=== PATIENT | female | born 1970 | race Caucasian/White ===

== ENCOUNTER 2020-01-23 16:50 | Emergency (ER) | payer OTHER, SELFPAY ==
--- NOTE | ~2020-01-23 | XR_ITS ---
EXAMINATION: XR knee RT 3V DATE: 01/23/2020 17:22 INDICATION: Right knee pain. TECHNIQUE: 3 views of right knee were obtained. COMPARISON: Right knee radiographs 10/06/2016 FINDINGS: Bone alignment is normal. No fracture. There is mild tricompartmental osteoarthritis charac terized by tiny marginal osteophytes. No knee joint effusion. IMPRESSION: 1. Mild right knee osteoarthritis. Reviewed, dictated and finalized at location A.
[2020-01-23 17:03] VITALS: BP 135/77; PULSE 88; RESP 18; TEMP 36.6; O2SAT 99
--- NOTE | 2020-01-23 17:04 | ED.LOWEXIN ---
HPI - Extremity Injury (Lower) General Chief Complaint: Extremity Injury, Lower Stated Complaint: right knee injury Time Seen by Provider: 01/23/20 17:09 Source: patient Mode of arrival: ambulatory Limitations: no limitations History of Present Illness HPI Narrative: Juana Kauffman is a 49 yo female with no PMH comes to express care with injury to right leg that occurred POA. She was caring a bit up the stairs and her right knee popped, pain in the posterior medial side of right knee, difficulty extending or flexing the knee without pain. Only treatment is ice Related Data Allergies Allergy/AdvReac Type Severity Reaction Status Date / Time latex Allergy Severe Nausea Verified 01/23/20 16:54 piroxicam Allergy Severe Swelling Verified 01/23/20 17:34 codeine AdvReac Mild NAUSEA/VOMI Verified 01/23/20 16:54 TING Review of Systems Review of Systems: Narrative: CONSTITUTIONAL: Denies fever, chills, sweats. EYES: Denies visual changes, redness, discharge. ENT: Denies rhinorrhea, congestion, sore throat, otalgia. CARDIOVASCULAR: Denies chest pain, palpitations, edema. RESPIRATORY: Denies dyspnea, wheezing, cough GASTROINTESTINAL: Denies abdominal pain, nausea, vomiting, diarrhea. GENITOURINARY: Denies dysuria, hematuria, abnormal discharge SKIN: Denies rash or itching. NEUROLOGIC: Denies numbness, or focal weakness. PSYCHIATRIC: Denies anxiety or depression. Right knee pain PMFSH Family History Family History Father Family history of primary malignant neoplasm of liver Other Diabetes mellitus Hypertension Social History Social History Smoking status: Never smoker Alcohol intake: never Gender identity (if verbalized by the patient): Female Comments At time of signature, I agree with nursing past medical, surgical, social and family history. There is no relevant family history pertinent to the presenting complaint. Exam Narrative: Exam Narrative: GENERAL: This is a well-nourished, well-developed patient, in moderate distress. HEAD: normocephalic, atraumatic. EYES: Sclera clear/white. Vision is grossly intact. EARS: External ears normal, . Hearing grossly intact. NOSE: External nose normal without nasal discharge, nares without redness, no rhinorrhea. THROAT: Mucous membranes moist, NECK: Neck supple, CARDIOVASCULAR: Regular rate and rhythm without murmurs, gallops, or rubs. RESPIRATORY: Clear to auscultation. Breath sounds equal bilaterally. No wheezes, rales, or rhonchi. GASTROINTESTINAL: Abdomen soft, SKIN: warm, intact with no suspicious lesions or rash, good texture and turgor. NEURO: awake, alert, and oriented to person, place and time. There were no obvious focal neurologic abnormalities. Steady gait EXTREMITIES: Normal range of motion on left; right knee pain medial posterior side unable to extend fully and flexion stops at 90 degrees due to pain; point tenderness at medial clear collateral ligament attachment BACK: Nontender without deformity Course Course Emergency Course: X-ray right knee- mild R knee osteoarthritis, no fracture or dislocation Toradol 60 mg IM- canceled due to angioedema reported by pt when questioned about rx; discharged on norco Knee immobilizer placed on R knee Referral to orthopedist-treat with RICE over the weekend Vital Signs Vital signs: Vital Signs Temperature 97.9 F 01/23/20 17:03 Pulse Rate 88 01/23/20 17:03 Respiratory Rate 18 01/23/20 17:03 Blood Pressure 135/77 01/23/20 17:03 Pulse Oximetry 99 01/23/20 17:03 Temperature 97.9 F 01/23/20 17:03 Pulse Rate 88 01/23/20 17:03 Respiratory Rate 18 01/23/20 17:03 Blood Pressure 135/77 01/23/20 17:03 Pulse Oximetry 99 01/23/20 17:03 MDM - Extremity Injury (Lower) Differential Diagnosis Differential diagnosis: Likely acute internal derangement of knee, ankle fracture an
== END 2020-01-23 17:39 | disposition home or self-care (01) ==
PROVIDERS: Emergency Provider Nurse Practitioner; PCP Registered Nurse
DX: M25.561 Pain in right knee (principal)
CPT/HCPCS: 73562; 99213; G0463; L1830

== ENCOUNTER 2020-10-25 13:53 | Outpatient (CLI) | payer OTHER, SELFPAY ==
--- NOTE | ~2020-10-25 | MM_ITS ---
EXAMINATION: MM screening mejia BI w ajit HISTORY: Screening TECHNIQUE: Craniocaudal and mediolateral oblique 3-D tomosynthesis images were obtained and synthetic 2-D images were generated. CAD analysis was submitted and interpreted. COMPARISON: No prior mammogram is available for comparison at this institution. BREAST PARENCHYMAL COMPOSITION: Breast composed of scattered areas of fibroglandular density FINDINGS: There are clustered calcifications in the lower central aspect of the right breast. There i s focal asymmetry laterally in the left breast on CC view. IMPRESSION: 1. Clustered indeterminate right breast calcifications. Focal left breast asymmetry laterally on CC v iew with possible architectural distortion. 2. Additional mammographic views and possible breast ultrasound are recommended. BI-RADS Category 0: Incomplete: Needs additional imaging evaluation. Reviewed, dictated and finalized at location A. IMPRESSION: 1. Clustered indeterminate right breast calcifications. Focal left breast asymm etry laterally on CC view with possible architectural distortion. 2. Additional mammographic views and possible breast ultrasound are recommended . BI-RADS Category 0: Incomplete: Needs additional imaging evaluation.
== END 2020-10-25 13:54 | disposition home or self-care (01) ==
PROVIDERS: PCP Registered Nurse; Visit Provider Obstetrics & Gynecology
DX: Z12.31 Encounter for screening mammogram for malignant neoplasm of breast (principal); R92.8 Other abnormal and inconclusive findings on diagnostic imaging of breast
CPT/HCPCS: 77063; 77067

== ENCOUNTER 2020-12-17 11:55 | Outpatient (CLI) | payer OTHER, SELFPAY ==
--- NOTE | ~2020-12-17 | MMUS_ITS ---
EXAMINATION: MM diagnostic mammo BI, US breast LT complete HISTORY: Follow-up breast calcifications and left breast asymmetry. TECHNIQUE: Additional 3-D tomosynthesis images of the breasts were performed and synthetic 2-D images were generated. CAD analysis was submitted and interpreted. High resolution complete left breast ult rasound was performed. COMPARISON: Comparison to multiple prior studies sequentially, with oldest reviewed study dated 12/31. BREAST PARENCHYMAL COMPOSITION: Breast composed of scattered areas of fibroglandular density FINDINGS: MAMMOGRAPHIC FINDINGS: There are scattered bilateral breast calcifications many of which layer on the medial lateral view, c onsistent with benign milk of calcium. There is persistent asymmetry lateral aspect of the left breas t on CC view without discrete mass. ULTRASOUND: Left breast ultrasound: There are multiple cysts of the left breast as well as mildly prominent peria reolar ducts. Largest cyst measures approximately 5 mm. No suspicious solid or vascular masses to sug gest malignancy. IMPRESSION: 1. No evidence for malignancy in either breast. Benign findings. 2. Routine yearly screening mammogram and regular clinical breast examination are recommended. BI-RADS Category 2: Benign finding(s). Reviewed, dictated and finalized at location A. IMPRESSION: 1. No evidence for malignancy in either breast. Benign findings. 2. Routine yearly screening mammogram and regular clinical breast examination a re recommended. BI-RADS Category 2: Benign finding(s).
== END 2020-12-17 11:56 | disposition home or self-care (01) ==
LOC: ANHIMG 11:57
PROVIDERS: PCP Registered Nurse; Visit Provider Obstetrics & Gynecology
DX: R92.8 Other abnormal and inconclusive findings on diagnostic imaging of breast (principal)
CPT/HCPCS: 76641; 77066

== ENCOUNTER 2022-08-11 08:54 | Outpatient (CLI) | payer OTHER, SELFPAY ==
--- NOTE | ~2022-08-11 | MM_ITS ---
EXAMINATION: MM screening mejia BI w ajit HISTORY: Screening TECHNIQUE: Craniocaudal and mediolateral oblique 3-D tomosynthesis images were obtained and synthetic 2-D images were generated. CAD analysis was submitted and interpreted. COMPARISON: Comparison to multiple prior studies sequentially, with oldest reviewed study dated 10/25. BREAST PARENCHYMAL COMPOSITION: There are scattered areas of fibroglandular density. FINDINGS: Stable bilateral breast asymmetries and calcifications. There is no evidence of suspicious mass, calcification, or architectural distortion to suggest malignancy in either breast. There has be en no suspicious interval change. IMPRESSION: 1. No mammographic evidence of malignancy. 2. Recommend routine screening mammography in one year. BI-RADS Category 2: Benign finding(s). Reviewed, dictated and finalized at location A. L [employer]
== END 2022-08-11 08:55 | disposition home or self-care (01) ==
LOC: ANHIMG 08:57
PROVIDERS: PCP Registered Nurse; Visit Provider Registered Nurse
DX: Z12.31 Encounter for screening mammogram for malignant neoplasm of breast (principal)
CPT/HCPCS: 77063; 77067

== ENCOUNTER 2022-11-28 11:31 | Outpatient (CLI) | payer OTHER, SELFPAY ==
--- NOTE | ~2022-11-28 | XR_ITS ---
Left wrist Technique: PA, oblique, lateral, and ulnar deviation views were obtained. Clinical History: Pain Findings: No acute fracture or dislocation is seen. Osseous alignment is anatomic. Joint spaces are p reserved. Soft tissues are unremarkable. Impression: Unremarkable left wrist radiographs. Reviewed, dictated and finalized at location . Impression: Unremarkable left wrist radiographs.
--- NOTE | ~2022-11-28 | XR_ITS ---
Left Hand Technique: PA, oblique, and lateral views were obtained. Clinical History: Pain Findings: No acute fracture or dislocation is seen. Osseous alignment is anatomic. Joint spaces are p reserved. Soft tissues are unremarkable. Impression: Unremarkable left hand. Reviewed, dictated and finalized at location M. Impression: Unremarkable left hand.
== END 2022-11-28 11:32 | disposition home or self-care (01) ==
PROVIDERS: PCP Registered Nurse; Visit Provider Registered Nurse
DX: M79.642 Pain in left hand (principal); M25.532 Pain in left wrist
CPT/HCPCS: 73110; 73130

== ENCOUNTER 2024-11-08 11:54 | Emergency (ER) | payer OTHER, SELFPAY ==
--- NOTE | ~2024-11-08 | XR_ITS ---
EXAMINATION: XR hand LT min 3V DATE: 11/08/2024 12:12 INDICATION: Left hand injury with bruising TECHNIQUE: Posteroanterior, oblique and lateral views of the left hand were obtained. COMPARISON: 11/28/2022 FINDINGS: Unchanged 3 mm ulnar minus variance. Bone alignment is otherwise normal. No acute fracture. Unchanged corticated ossicle near the ulnar styloid process is likely sequela of old trauma. Polyarticular ost eoarthritis, moderate severity at the triscaphe joint and mild at the distal radioulnar, first carpom etacarpal and multiple interphalangeal joints. IMPRESSION: 1. No acute osseous abnormality. Reviewed, dictated and finalized at location A.
--- NOTE | 2024-11-08 11:55 | ED_ITS ---
HPI - Extremity Injury (Upper) General Chief Complaint: Extremity Injury, Upper Stated Complaint: hand injury Time Seen by Provider: 11/08/24 11:54 Source: patient Mode of arrival: ambulatory Limitations: no limitations History of Present Illness HPI narrative: Juana is a 54-year-old female patient presenting to the clinic today with complaints of left hand pain/injury. She reports she has her dog on a leash and was trying to get outside the door when the dog seen something and took off. Her hand was smashed by the screen dog and pulled by the leash. Has bruising and swelling over the 2nd and 3rd knuckles with bruising over the 5th metacarpal. Abrasion to the winter aspect of the left third proximal finger. Bleeding controlled. Last tetanus is unknown. Related Data Home Medications ?Medication ?Instructions ?Recorded ?Confirmed ?Last Taken ?Type No Home Medications 11/08/24 11/08/24 Unknown History Allergies Allergy/AdvReac Type Severity Reaction Status Date / Time latex Allergy Severe Nausea Verified 11/08/24 12:04 piroxicam Allergy Severe Swelling Verified 11/08/24 12:04 codeine AdvReac Mild NAUSEA/VOMI Verified 11/08/24 12:04 TING Review of Systems Review of Systems: Pertinent positives per HPI. Patient denies any fever, chills, rash, headache, visual changes, dizziness, cough, shortness of breath, chest pain, palpitations, nausea, vomiting, diarrhea, constipation, abdominal pain, or any urinary issues. PMFSH Past Medical History Medical History High blood pressure never on medications Menopausal state Surgical History Surgical History History of cholecystectomy History of hysterectomy with oophorectomy still has one ovary Family History Family History Father Family history of primary malignant neoplasm of liver Other Diabetes mellitus Hypertension Social History Social History Smoking status: Never smoker Alcohol intake: never Substance use: never Do You Feel Safe in your Home?: Yes Lack of Transportation: No Lack of Food: Never True Current Housing: I Have Housing Concerned About Future Housing: No Difficulty Paying Gas/Electric Bills: No Difficulty Paying for Meds: No Currently Unemployed: YES Education: High School Diploma/GED Difficulty w/ Childcare or Family Care: No Living arrangements: with family Occupation/Education: occupation Gender identity (if verbalized by the patient): Female Sexual Orientation (if Verbalized by the Patient): Straight or Heterosexual Spiritual care concerns: No Agree to blood products: Yes Comments At the time of my signature, I reviewed and agree with the nursing past medical, surgical, social, and family history. There is no relevant family history pertinent to the patient complaint. Exam Narrative: General: Well-developed, well nourished, in no apparent distress Head: Normocephalic, atraumatic. Cardio: Regular rate and rhythm, s1 and s2 normal, no murmur appreciated. Resp: Clear to auscultation bilaterally, no rhonchi, rales, wheezing or rubs. Musculoskeletal: No deformity, as bruising and swelling over the 2nd and 3rd knu ckles with bruising over the 5th metacarpal. Abrasion to the winter aspect of the left third proximal finger and over the 2nd knuckle. Bleeding controlled, tender to palpation over these areas, limited rom of finger due to pain and swelling, peripheral pulse strong, no edema, no cyanosis, normal gait and station Course Course Emergency Course: Portions of this record may have been created with voice recognition software. Level of Care: Express Care Visit Vital Signs Vital signs: Vital Signs Temperature 36.1 C L 11/08/24 12:03 Pulse Rate 66 11/08/24 12:03 Respiratory Rate 18 11/08/24 12:03 Blood Pressure 139/71 11/08/24 12:03 Pulse Oximetry 100 11/08/24 12:03 Oxygen Delivery Room Air 11/08/24 12:03 Temperature 36.1 C L 11/08/24 12:03 Pulse Rate 66 11/08/24 12:03 Respiratory Rate 18 11/08/24 12:03 Blood Pressure 139/71 11/08/24 12:03 Pulse Oximetry 100 11/08/24 12:03 Oxygen Delivery Room Air 11/08/24 12:03 Vital signs reviewed MDM - Extremity Injury (Upper) MDM Narrative Medical decision making narrative: At the time of visit patient is resting comfortably on the exam table. Patient appears to be nontoxic. Diagnostics: X-ray of the left hand was performed and was negative for any sign of fracture or malalignment. Medications: Tdap 0.5 mL IM Plan: I suspect patient has skin abrasion, hand contusion, and hematoma to the top of the dorsal hand. Supportive measures were discussed with the patient and they voiced understanding discharge instructions and agrees to treatment plan. Return precautions reviewed Differential Diagnosis Differential diagnosis: Likely finger sprain, dislocation of finger, fracture of hand and other (Hematoma, abrasion, contusion, hand sprain) Imaging Data Radiologist's impression: ITS Impressions Hand X-Ray 11/08/24 12:20 IMPRESSION: 1. No acute osseous abnormality. Discharge Plan Discharge Clinical Impression: Hematoma of left hand Contusion of hand Qualifiers: Encounter type: initial encounter Laterality: left Qualified Code(s): S60.222A - Contusion of left hand, initial encounter Abrasion hand Qualifiers: Encounter type: initial encounter Laterality: left Qualified Code(s): S60.512A - Abrasion of left hand, initial encounter Abrasion of finger of left hand Qualifiers: Encounter type: initial encounter Qualified Code(s): S60.419A - Abrasion of unspecified finger, initial encounter Patient Disposition: Home Condition: Stable Instructions: Antibiotic Form, Contusion in Adults (ED), Abrasion (ED), Hematoma (ED) Additional Instructions: X-rays negative for any signs of fracture or malalignment the left hand Tdap given in the clinic today Leave bandage on for 24 hours then may remove and apply band aide covering as needed. Keep wound clean and dry Watch for signs and symptoms of infection- redness, streaking, swelling, p urulent discharge, or increase in pain. Rest, ice, elevate, and wear deshawn wrap as directed Tylenol/motrin for pain as discussed. Follow up with your PCP if symptoms persist more than 1 week. Patient Language: Belarusian Prescriptions: No Action No Home Medications Follow-up/Referrals: Ritu Dickerson APRN [Primary Care Provider] - Time of Disposition: 12:24 Quality NIHSS Nursing Documentation ED NIHSS nursing documentation: reviewed/agree
--- OUTSIDE RECORDS SUMMARY | 2024-11-08 11:56 | XMS_ITS | Continuity of Care Document ---
Author Organization [facility] Address [address] [place] [address] [place] [address] Phone Care Team Providers Care Consulting Networking Engineer Name Role Phone Pete Gamboa MD Unavailable Unavailable Allergies, Adverse Reactions, Alerts Substance Reaction Status Criticality piroxicam Active No Information codeine Active No Information Medications Medication Instructions Dosage Effective Dates (start - stop) Status Comments No Drug Therapy Prescribed Procedures Procedure Date PREV VISIT, NEW, AGE 40-64 OFFICE/OUTPATIENT VISIT, [facility] Advance Directives Directive Yes / No Effective Date File Name No Information Encounters Encounter Description Practice Location Reason(s) For Visit Diagnoses Date Provider Providers Copied on Encounter PREV VISIT, NEW, AGE 40-64 [facility], [address] [place], [place], [id number], tel:[phone] [facility] PHysical (chief complaint) Encounter for general adult medical exam w abnormal findingsGERD w/o esophagitisFamily history of other diseases of the digestive system [address] [facility] [place], [id number] , [place]. tel:[phone] Referring Provider: Pete Gamboa [address] [facility] [place], [id number]. tel:[phone] Family History Family Member Type Diagnosis Age At Onset Sister Problem (finding) Alive and well Mother Problem (finding) Alive and well Father Problem (finding) liver CA (Cause Of Deat h) 64 Payers Payer name Insurance type Covered libertarian ID Authoriza tion(s) No Information Social History [...] Mental Status Date Cognitive Assessment Orientation - [place] ed to time, place, person, situation.
--- OUTSIDE RECORDS SUMMARY | 2024-11-08 11:56 | XMS_ITS | Clinical Summary ---
Author Organization [facility] Address Formerly [place] [address] Care Team Providers Care Cigarette Machine Filler Name Role Phone Natalya Huynh Primary Care Provider Allergies Active Allergy Reactions Criticality Noted Date Comments Codeine Nausea Only,Unknown 08/25/2014 Latex Anaphylaxis High 11/29/2022 Meloxicam Angioedema 10/31/2017 Piroxicam Unknown 10/30/2016 Medications omeprazole 20 MG capsule Take 1 capsule (20 mg total) by mouth daily. Active multi vitamin/mineral s tablet Take 1 tablet by mouth daily. Active Cholecalciferol (VITAMIN D) 50 MCG (2000 UT) Cap Take by mouth daily. Active albuterol sulfate HFA (PROAIR HFA) 108 (90 Base) MCG/ACT inhalerIndicati ons:Cough Inhale 2 puffs into the lungs every 6 (six) hours as needed for Wheezing. 18 g 2 Active estradiol (ESTRACE) 2 MG tablet Take 1 tablet (2 mg total) by mouth daily. 2 Active EPINEPHrine (EPIPEN 2-LUIZ) 0.3 MG/0.3ML injectionIndica tions:Latex allergy Inject 0.3 mLs (0.3 mg total) into the muscle as needed for Anaphylaxis. 1 each 1 3 Active fluticasone propionate (FLONASE) 50 MCG/ACT nasal sprayIndication s:Seasonal allergies Use 1 spray twice daily 16 mL 5 4 Active predniSONE (DELTASONE) 20 MG tabletIndicatio ns:Dysfunction of left eustachian tube Take one tablet once daily for 5 days 5 tablet 4 Active Additional Information Patient not taking.Reported on 12/25/2023 atorvastatin (LIPITOR) 10 MG tabletIndicatio ns:Hyperlipidem ia Take 1 tablet (10 mg total) by mouth nightly at bedtime. 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/19/2017 Fatigue 08/08/2017 Osteoarthritis of right knee 03/12/2017 Patella-femoral syndrome 03/12/2017 Low back pain 01/28/2016 Anxiety 08/06/2015 Right knee pain 08/06/2015 Chronic gastroesophageal reflux disease 01/15/20 15 Thoracic back pain 01/14/2015 Neck pain 01/14/2015 Rhinitis, allergic 10/22/2014 Paresthesia of right arm 08/25/2014 Resolved Problems Problem Noted Date Diagnosed Date Resolved Date Dysuria 04/17/2018 05/02/2022 Sinus infection 11/21/2017 05/02/2022 Pharyngitis, acute 11/20/2017 2 Family History Medical History Relation Comments Cancer Father liver cancer Diabetes Father Hypertension Father Relation Status Comments Father (Age 63) Social History Tobacco Use Types Packs/Day Years Used Date Smoking Tobacco: Never Smokeless Tobacco: Never Tobacco Cessation:Counseling Given: Not Answered Alcohol Use Standard Drinks/Week Comments No 0 (1 standard drink = 0.6 oz pur e alcohol) social AUDIT-C Answer Date Recorded Q1: How often do you have a drink containing alc ohol? Never 04/20/2020 Average Number of Drinks Not on file 020 Frequency of Binge Drinking Not on file 12/2019 PHQ-2 Answer Date Recorded Patient Health Questionnaire-2 Score 4 12/25/2023 Comments No Sex and Gender Information Value Date Recorded Sex Assigned at Female 07/13/2021 9:32 AM MANAGER KNOWLEDGE Legal Sex Female 4:04 PM CDT Gender Identity Female 07/13/2021 9:32 AM MANAGER KNOWLEDGE Sexual Orientation Straight 07/13/2021 9: 32 AM MANAGER KNOWLEDGE Last Filed Vital Signs Vital Sign Reading Time Taken Comments Blood Pressure 122/78 12/25/2023 11:00 AM CDT Pulse 81 12/25/2023 11:00 AM CDT Temperature 36.7 C (98 F) 12/25/2023 11:00 AM CDT Respiratory Rate 16 12/25/2023 11:0 0 AM CDT Oxygen Saturation 98% 12/25/2023 11: 00 AM CDT Inhaled Oxygen Concentration - - Weight 78.4 kg (172 lb 12.8 oz) 024 11:00 AM CDT Height 162.6 cm (5' 4 ) 12/25/2023 11:0 0 AM CDT Body Mass Index 29.66 12/25/2023 11:00 AM CDT Plan of Treatment Health Maintenance Due Date Last Done Comments Hepatitis C 1989 DTaP, Tdap and Td Vaccines (1 - Tdap) 1990 Hepatitis B Vaccines (1 of 3 - 19+ 3-dose series) 1990 Pneumococcal Vaccine: 50+ Years (1 of 1 - PCV) 2021 Zoster Vaccines (1 of 2) 2021 Annual Physical 05/02/2023 05/02/2022 COVID-19 Vaccine (1 - season) 2024 PHQ-2 (Physician [place]) 07/16/2024 12/25/2023 Mammogram Screening 08/11/2024 08/11/2022, 12/17/2020, 10/29/2020, Additional history exists Colorectal Cancer Screening Colonoscopy (10 Years) 11/10/2027 11/09/2017 Meningococcal B Vaccine Aged Out No l onger eligible based on patient's age to complete this topic Meningococcal Vaccine Aged Out No lisandro rocio eligible based on patient's age to complete this topic RSV Immunizations Under 20 Months Aged Out No longer eligible based on patient's age to complete this topic Procedures Procedure Name Priority Date/Time Associated Diagnosis Comments MAMMOGRAM GENERIC (SCAN ORDER) 08/11/2022 COLONOSCOPY GENERIC (SCAN ORDER) Routine 11/09/2017 12:00 AM CDT from Last 3 Months or Most Recently Relevant to Health Maintenance Results * MAMMOGRAM GENERIC (08/11/2022) Anatomical Region Laterality Modality Other 08/11/2022 [facility] Scanned SCANNING Final Resu lt * COLONOSCOPY (11/09/2017 12:00 AM CDT) 11/09/2017 us Documents Scanned SCANNING Final Result [facility] from Last 3 Months or Most Recently Relevant to Health Maintenance Insurance [employer] Care Teams Cigarette Machine Filler Relationship Specialty Start Date End Date Natalya Huynh APNP Family & Internal Medicine [address] [address] PCP - General ADVANCED PRACTICE APPEALS WRITER 10/31/17
--- OUTSIDE RECORDS SUMMARY | 2024-11-08 11:56 | XMS_ITS | Encounter Summary ---
Author Organization [facility] Address [address] [place] [address] Care Team Providers Care Stunt Driver Name Role Phone Natalya Huynh Primary Care Provider [phone] Encounter Details Date Type Department Care Team (Late st Contact Info) Description 03/01/2021 [facility] Physical Therapy [address] [place] [address] Vinita Causey, PT Social History Tobacco Use Types Packs/Day Years Used Date Smoking Tobacco: Never Smokeless Tobacco: Never Alcohol Use Standard Drinks/Week Comments No 0 (1 standard drink = 0.6 oz pur e alcohol) social AUDIT-C Answer Date Recorded Q1: How often do you have a drink containing alc ohol? Never 04/20/2020 Average Number of Drinks Not on file 020 Frequency of Binge Drinking Not on file 12/2019 PHQ-2 Answer Date Recorded PHQ-2 Score - If the patient scores above 3, please move on to questions 3-9 3 10/05/2020 Comments No Sex and Gender Information Value Date Recorded Sex Assigned at Female 07/13/2021 9:32 AM TRACTOR MECHANIC Legal Sex Female 4:04 PM CDT Gender Identity Female 07/13/2021 9:32 AM TRACTOR MECHANIC Sexual Orientation Straight 07/13/2021 9: 32 AM TRACTOR MECHANIC documented as of this encounter Plan of Treatment Not on file documented as of this encounter Visit Diagnoses Not on filedocumented in this encounter Additional Health Concerns Infection Onset Date Last Indicated Resolved Time COVID-19 Rule Out 03/16/2021 03/16/202103/16/2021 2:18 PM CDT COVID-19 Rule Out 03/16/2021 03/16/2021 03/18/2021 10:36 AM CDT COVID-19 Rule Out 04/29/2021 04/29/2021 04/29/2021 12:08 PM CDT COVID-19 Confirmed 04/29/2021 04/29/2021 12:32 AM TRACTOR MECHANIC COVID-19 Rule Out 08/11/2022 08/11/2022 08/11/2022 11:22 AM TRACTOR MECHANIC COVID-19 Rule Out 08/11/2022 08/11/2022 08/12/2022 2:32 PM TRACTOR MECHANIC COVID-19 Rule Out 03/30/2023 03/21/2023 03/30/2023 11:38 AM CDT COVID-19 Rule Out 04/04/2023 03/21/2023 04/11/2023 12:32 AM CDT Assessment Noted Time PHQ-9 Depression Total Score: 8 10/06/19 21 11:04 AM CDT documented as of this encounter Care Teams Stunt Driver Relationship Specialty Start Date End Date Natalya Huynh APNP Family & Internal Medicine [address] [address] PCP - General ADVANCED PRACTICE ASSISTANT CUSTOMER SERVICE MANAGER 10/31/17 documented as of this encounter
--- OUTSIDE RECORDS SUMMARY | 2024-11-08 11:59 | XMS_ITS | Continuity of Care Document ---
Author Organization [facility] Address [address] [place] [address] [place] [address] Phone Care Team Providers Care Commanding Officer Homicide Squad Name Role Phone Pete Gamboa MD Unavailable Unavailable Allergies, Adverse Reactions, Alerts Substance Reaction Status Criticality piroxicam Active No Information codeine Active No Information Medications Medication Instructions Dosage Effective Dates (start - stop) Status Comments No Drug Therapy Prescribed Procedures Procedure Date PREV VISIT, NEW, AGE 40-64 OFFICE/OUTPATIENT VISIT, [facility] Advance Directives Directive Yes / No Effective Date File Name No Information Encounters Encounter Description Practice Location Reason(s) For Visit Diagnoses Date Provider Providers Copied on Encounter PREV VISIT, NEW, AGE 40-64 [facility], [address] [place], [place], [id number], tel:[phone] [facility] PHysical (chief complaint) Encounter for general adult medical exam w abnormal findingsGERD w/o esophagitisFamily history of other diseases of the digestive system [address] [facility] [place], [id number] , [place]. tel:[phone] Referring Provider: Pete Gamboa [address] [facility] [place], [id number]. tel:[phone] Family History Family Member Type Diagnosis Age [...] Mental Status Date Cognitive Assessment Orientation - [place] ed to time, place, person, situation.
[2024-11-08 12:03] VITALS: BP 139/71; PULSE 66; RESP 18; TEMP 36.1; O2SAT 100
[2024-11-08] MEDS: TETANUS,DIPHTHERIA,AC PERTUSSIS ADULT (0.5 ML) BOOSTRIX IM (12:16)
== END 2024-11-08 12:27 | disposition home or self-care (01) ==
PROVIDERS: Emergency Provider Nurse Practitioner Family; PCP Nurse Practitioner Family
DX: S60.222A Contusion of left hand, initial encounter (principal); S60.413A Abrasion of left middle finger, initial encounter; S60.512A Abrasion of left hand, initial encounter; W22.8XXA Striking against or struck by other objects, initial encounter; Z23 Encounter for immunization
CPT/HCPCS: 73130; 90471; 90715; 99213; G0463

== ENCOUNTER 2024-11-14 00:11 | Day surgery (SDC) | payer OTHER, SELFPAY ==
[2024-11-07 10:29] VITALS: BMI 30.9
--- NOTE | 2024-11-07 10:30 | PC.NURSE ---
Report to the Outpatient Waiting Room, entrance under the green pavilion located off [facility], at time _0930_ on date _[id number]_. Planned Procedure Time: _1130_.? Time changes happen often and if your time is changed the preop area will call you the afternoon before. - You and your visitor will be asked to self-screen and do not enter if you have any COVID symptoms. Please call surgeon if you need to reschedule. - A mask is optional within the hospital at this time. Patients may have clear liquids (water, carbonated beverages, clear teas, apple juice) until 3 hours prior to surgery with a maximum of 20 ounces. - No food from midnight until time of surgery and no smoking, or chewing tobacco (or any form of nicotine). No chewing gum, candy or mints. Take only the following medications with a SIP of water on the morning of surgery: __Nasal spray, inhaler and nausea medicine if needed. DO NOT STOP ANY OF YOUR OTHER PRESCRIPTION MEDICATIONS PRIOR TO SURGERY EXCEPT THE FOLLOWING Hold all vitamins and supplements for 3 days per anesthesiologist. Medications to discontinue per physician Date to take last dose Please no make-up, nail bahamian, hairspray, perfume, deodorant, or body powder the day of surgery.? No jewelry (including any body piercings) or valuables the day of surgery, leave them at home.? Please take a shower or bath the night before, or the morning of, surgery with an antibacterial soap.? Wear comfortable, loose fitting clothing.? - Jewelry must be removed prior to entering the operating room.? Rings and piercings that are not removed may be cut off. - The hospital will not accept responsibility for valuables.? - Please leave all valuables, including medications, at home the day of surgery. If you are going home after surgery, a licensed driver guide must drive you home.? - NO public transportation without another adult if you receive anesthesia. - We recommend that an adult stay with you for 24 hours following discharge. - We also recommend that you do not drive, make important decision, drink alcoholic beverages, or take any drugs that were not prescribed by your health care provider for at least 24 hours after your discharge time. Follow any additional instructions given to you from your surgeon. Telephone instructions given to __Juana___and asked if any additional questions and then verbalized understanding. Patient advised to call surgeon office or pre surgery nurse liaison [phone] if any additional questions.
--- NOTE | 2024-11-11 11:44 | P.HP_ITS ---
H&P: HPI History of Present Illness Date/Time: 11/11/24 11:44 Chief Complaint: Pelvic pain left ovarian cyst Narrative: 54-year-old female status post hysterectomy admitted for laparoscopic left ovarian removal and tube if present. She has severe pelvic pain and discomfort as well as dyspareunia. Risks and benefits of this procedure reviewed including but not exclusive of , aspiration pneumonia, bleeding, transfusion, perforation injury to bowel, bladder, ureters, or other internal organs with need for open laparotomy. She received the ACOG handout entitled laparoscopy. She had all questions answered. She asked to proceed. Review of Systems Review of Systems: Pertinent positives per HPI. Patient denies any fever, chills, rash, headache, visual changes, dizziness, cough, shortness of breath, chest pain, palpitations, nausea, vomiting, diarrhea, constipation, abdominal pain, or any urinary issues. [facility] Past Medical History Medical History Headache GERD (gastroesophageal reflux disease) High blood pressure never on medications Menopausal state Surgical History Surgical History History of cholecystectomy History of hysterectomy with oophorectomy still has one ovary Family History Family History Father Family history of primary malignant neoplasm of liver Cancer Alcoholism Hypertension Diabetes mellitus Sibling Depression Social History Social History Smoking status: Never smoker Alcohol intake: never Substance use: never Do You Feel Safe in your Home?: Yes Lack of Transportation: No Lack of Food: Never True Current Housing: I Have Housing Concerned About Future Housing: No Difficulty Paying Gas/Electric Bills: No Difficulty Paying for Meds: No Currently Unemployed: YES Education: High School Diploma/GED Difficulty w/ Childcare or Family Care: No Living arrangements: with family Occupation/Education: occupation Gender identity (if verbalized by the patient): Female Sexual Orientation (if Verbalized by the Patient): Straight or Heterosexual Spiritual care concerns: No Agree to blood products: Yes Meds Home Medications and Allergies Home Medications ?Medication ?Instructions ?Recorded ?Confirmed ?Type albuterol sulfate 90 mcg/actuation 2 inh inhalation Q4H 11/10/24 11/10/24 History aerosol inhaler (Ventolin HFA) estradiol 1 mg tablet 1 mg PO DAILY 11/10/24 11/10/24 History fluconazole 150 mg tablet 150 mg PO DAILY 11/10/24 11/10/24 History mometasone 50 mcg/actuation nasal 2 spray intranasal DAILY 11/10/24 11/10/24 History spray Allergies Allergy/AdvReac Type Severity Reaction Status Date / Time latex Allergy Severe Nausea Verified 11/10/24 11:07 piroxicam Allergy Severe Swelling Verified 11/10/24 11:07 codeine AdvReac Mild NAUSEA/VOMI Verified 11/10/24 11:07 TING Exam Const: General: cooperative, healthy appearing, comfortable and overweight Orientation/consciousness: oriented to person, oriented to place and oriented to time HENMT: Head: normal to inspection Resp: Effort & Inspection: normal respiratory effort Cardio: Rate: regular rate Rhythm: regular rhythm Heart sounds: S1 normal heart sound present and S2 normal heart sound present GI: Inspection: normal to inspection : External Female Exam: normal external appearance Speculum Exam - Vagina: normal appearance of the vagina Speculum Exam - Cervix: Cervix absent Bimanual exam- vagina & uterus: uterus absent Bimanual Exam- Adnexa, other: tender on the left Assessment and Plan Assessment and plan (1) Left ovarian cyst: Code(s): N83.202 - Unspecified ovarian cyst, left side Status: Acute Plan Proceed with laparoscopic LSO
[2024-11-14] VITALS (15 sets, daily range): BP systolic 103–152; BP diastolic 54–95; PULSE 18–91; RESP 12–88; TEMP 36.2–36.6; O2SAT 72–100; BMI 30.7
--- OUTSIDE RECORDS SUMMARY | 2024-11-14 00:13 | XMS_ITS | Encounter Summary ---
Author Organization [facility] Address [address] [place] [address] Care Team Providers Care Manager Process Name Role Phone Natalya Huynh Primary Care Provider [phone] Encounter Details Date Type Department Care Team (Late st Contact Info) Description 03/01/2021 [facility] Physical Therapy [address] [place] [address] Vinita Causey, PT Social History [...] Sex Assigned at Female 07/13/2021 9:32 AM BEVELING MACHINE OPERATOR Legal Sex Female 4:04 PM CDT Gender Identity Female 07/13/2021 9:32 AM BEVELING MACHINE OPERATOR Sexual Orientation Straight 07/13/2021 9: 32 AM BEVELING MACHINE OPERATOR documented as of this encounter Plan of [...] CDT COVID-19 Confirmed 04/29/2021 04/29/2021 12:32 AM BEVELING MACHINE OPERATOR COVID-19 Rule Out 08/11/2022 08/11/2022 08/11/2022 11:22 AM BEVELING MACHINE OPERATOR COVID-19 Rule Out 08/11/2022 08/11/2022 08/12/2022 2:32 PM BEVELING MACHINE OPERATOR COVID-19 Rule Out 03/30/2023 03/21/2023 03/30/2023 11:38 AM CDT COVID-19 Rule Out 04/04/2023 03/21/2023 04/11/2023 12:32 AM CDT Assessment Noted Time PHQ-9 Depression Total Score: 8 10/06/19 21 11:04 AM CDT documented as of this encounter Care Teams Manager Process Relationship Specialty Start Date End Date Natalya Huynh APNP Family & Internal Medicine [address] [address] PCP - General ADVANCED PRACTICE HAND BINDER CUTTER 10/31/17 documented as of this encounter
--- OUTSIDE RECORDS SUMMARY | 2024-11-14 00:13 | XMS_ITS | Clinical Summary ---
Author Organization [facility] Address [facility] [place] [address] Care Team Providers Care Tax Services Specialist Name Role Phone Natalya Huynh Primary Care [...] Sex Assigned at Female 07/13/2021 9:32 AM INDIVIDUAL PENSION CONSULTANT Legal Sex Female 4:04 PM CDT Gender Identity Female 07/13/2021 9:32 AM INDIVIDUAL PENSION CONSULTANT Sexual Orientation Straight 07/13/2021 9: 32 AM INDIVIDUAL PENSION CONSULTANT Last Filed Vital Signs Vital Sign Reading [...] Vaccine (1 - season) 2024 PHQ-2 (Physician [place]) 07/16/2024 12/25/2023 Mammogram Screening 08/11/2024 08/11/2022, 12/17/2020, [...] 11/09/2017 us Documents Scanned SCANNING Final Result [facility] from Last 3 Months or Most Recently Relevant to Health Maintenance Insurance [employer] Care Teams Tax Services Specialist Relationship Specialty Start Date End Date Natalya Huynh APNP Family & Internal Medicine [address] [address] PCP - General ADVANCED PRACTICE SPRAY PILOT 10/31/17
--- OUTSIDE RECORDS SUMMARY | 2024-11-14 00:13 | XMS_ITS | Continuity of Care Document ---
Author Organization [facility] Address [address] [place] [address] [place] [address] Phone Care Team Providers Care Child Daycare Worker Name Role Phone Pete Gamboa MD Unavailable [...] on Encounter PREV VISIT, NEW, AGE 40-64 [facility], [address] [place], [place], [id number], tel:[phone] [facility] PHysical (chief complaint) Encounter for general adult medical exam w abnormal findingsGERD w/o esophagitisFamily history of other diseases of the digestive system [address] [facility] [place], [id number] , [place]. tel:[phone] Referring Provider: Pete Gamboa [address] [facility] [place], [id number]. tel:[phone] Family History Family Member Type Diagnosis Age At Onset Sister Problem (finding) Alive and well Mother Problem (finding) Alive and well Father Problem (finding) liver CA (Cause Of Deat h) 64 Payers Payer name Insurance type Covered democrat ID Authoriza tion(s) No Information Social History [...] Mental Status Date Cognitive Assessment Orientation - [place] ed to time, place, person, situation.
--- NOTE | 2024-11-14 06:29 | WPDHPUPDATE1 ---
History and Physical Update Update Date/Time: 11/14/24 06:29 History and Physical has been reviewed, including an updated exam of the patient. There are NO changes in the patient's condition. Risks, benefits, and alternatives have been discussed and questions answered. Patient agrees to proceed with procedure.
[2024-11-14] MEDS: LACTATED RINGERS 1,000 ML 30 ML IV CONT ×2 (09:30→12:00)
[2024-11-14] MEDS: ACETAMINOPHEN 500 MG TABLET 1000 MG PO (09:39)
--- NOTE | 2024-11-14 09:54 | WPDANESEPPF ---
Anes - Initial Pre Proc Eval Procedure: Operation Date: 11/14/24 11:00 Proposed Procedures p Laparoscopic Left Salpingo-oophorectomy - Jan Carlson MD Date/Time: 11/14/24 09:54 Surgeon: Jan Carlson MD Pre Op Diagnosis: Pelvic Pain, LT Ovarian Cyst Patient Data Age: 54 Gender: F Height: 1.63 m Weight: 81.3 kg Last Vital Signs Temp 36.6 C 11/14/24 08:43 Pulse 88 11/14/24 08:43 Resp 18 11/14/24 08:43 BP 149/76 H 11/14/24 08:43 Pulse Ox 100 11/14/24 08:43 O2 Del Method Room Air 11/14/24 08:43 Allergies Allergy/AdvReac Type Severity Reaction Status Date / Time latex Allergy Severe Nausea Verified 11/10/24 11:07 piroxicam Allergy Severe Swelling Verified 11/10/24 11:07 meloxicam Allergy Unknown Swelling Verified 11/14/24 09:43 codeine AdvReac Mild NAUSEA/VOMI Verified 11/10/24 11:07 TING Home Medications ?Medication ?Instructions ?Recorded ?Confirmed ?Type albuterol sulfate 90 mcg/actuation 2 inh inhalation Q4H 11/10/24 11/10/24 History aerosol inhaler (Ventolin HFA) estradiol 1 mg tablet 1 mg PO DAILY 11/10/24 11/10/24 History fluconazole 150 mg tablet 150 mg PO DAILY 11/10/24 11/10/24 History mometasone 50 mcg/actuation nasal 2 spray intranasal DAILY 11/10/24 11/10/24 History spray hydrocodone 5 mg-acetaminophen 325 1 tablet PO Q4H PRN pain #20 tabs 11/14/24 Rx mg tablet Laboratory Tests 11/14/24 09:30 Blood Type Pending Antibody Screen Pending Patient hx anesthesia problems: none Family hx anesthesia problems: none Results Review: All pre-operative results and documents have been reviewed as part of the pre-operative evaluation. [facility] Past Medical History Medical History Headache GERD (gastroesophageal reflux disease) High blood pressure never on medications Menopausal state Surgical History Surgical History History of cholecystectomy History of hysterectomy with oophorectomy still has one ovary Family History Family History Father Family history of primary malignant neoplasm of liver Cancer Alcoholism Hypertension Diabetes mellitus Sibling Depression Social History Social History Smoking status: Never smoker Alcohol intake: never Substance use: never Do You Feel Safe in your Home?: Yes Lack of Transportation: No Lack of Food: Never True Current Housing: I Have Housing Concerned About Future Housing: No Difficulty Paying Gas/Electric Bills: No Difficulty Paying for Meds: No Currently Unemployed: YES Education: High School Diploma/GED Difficulty w/ Childcare or Family Care: No Living arrangements: with family Occupation/Education: occupation Gender identity (if verbalized by the patient): Female Sexual Orientation (if Verbalized by the Patient): Straight or Heterosexual Spiritual care concerns: No Agree to blood products: Yes Anes - Eval Final PreProcedure Day of Procedure 11/14/24 09:54 Patient weight: obese Heart: regular rate and rhythm Lungs: clear to auscultation Airway: Mallampati scale class III Neurological: alert and oriented Last oral intake: >/= 8 hours ASA classification: II Emergent: no Anesthetic plan: proceed Anesthesia type and monitoring: general ETT and standard monitoring Results Review: All pre-operative results and documents have been reviewed as part of the pre-operative evaluation. Informed Consent: The patient's anesthetic plan and its attendant risks and benefits were discussed with the patient/family/POA. Questions were solicited and answers provided to the satisfaction of the patient/family/POA.
--- NOTE | 2024-11-14 11:24 | W.PM.PROC2 ---
Procedure Note - Detailed Date of Procedure 11/14/24 Pre-op Diagnosis Pelvic Pain, LT Ovarian Cyst Post-op Diagnosis Same Procedure Performed Laparoscopic LSO Surgeon Jan Carlson MD Anesthesia General Indications 54-year-old female status post hysterectomy admitted for laparoscopic LSO secondary to left ovarian cyst pelvic pain Findings Uterus surgically absent. Normal-appearing right ovary and tube. Large left ovarian cyst Description of Procedure The patient was prepped draped sterile fashion placed in the dorsal lithotomy position. Under excellent general anesthesia weighted speculum was placed in the posterior fornix vagina and a sponge stick placed. The bladder was drained clear urine the weighted speculum was removed. Supraumbilical incision made the Veress needle passed in the abdomen. Abdomen filled with CO2 gas [id number]. The 5mm trocar advanced with the Optiview under direct visualization assuring no injury. The patient placed in Trendelenburg and a suprapubic incision made. The 5mm trocar advanced under direct visualization assuring no injury. A left lower quadrant incision made the 8mm trocar advanced under direct visualization assuring no 4. Attention was turned to the pelvis a large right ovarian cyst was seen. There were some small adhesions around that in these were sharply dissected using monopolar cautery. The infundibulopelvic structure on the left the skeletonized clamping burning cutting until fallopian tube and ovarian cyst were placed in an Endo-Catch this was removed through the left lower quadrant incision. Hemostasis was assured. The gas was removed from the abdomen the trocars removed. The incisions closed with 4 Monocryl and glue. The patient awakened went recovery in satisfactory condition. All sponge, needle, instrument counts were correct. There were no immediate complications Estimated Blood Loss 5 Pathology Yes Complications No immediate complications Condition Stable Disposition PACU
[2024-11-14] MEDS: fentaNYL CITRATE INJ (*CRX) 100 MCG/2 ML VIAL 25 MCG IV PUSH ×4 (12:27→12:39)
[2024-11-14] MEDS: oxyCODONE HCL (*CRX) 5 MG TAB IR PO (13:23)
[2024-11-14] MEDS: ONDANSETRON INJ 4 MG/2 ML VIAL IV PUSH (14:03)
== END 2024-11-14 14:52 | disposition home or self-care (01) ==
PROVIDERS: PCP Nurse Practitioner Family; Visit Provider Obstetrics & Gynecology
PROC: (CPT 49320; principal; 2024-11-14 11:00)
DX: D27.1 Benign neoplasm of left ovary (principal); N73.6 Female pelvic peritoneal adhesions (postinfective); I10 Essential (primary) hypertension; K21.9 Gastro-esophageal reflux disease without esophagitis; E66.9 Obesity, unspecified; Z68.30 Body mass index [BMI] 30.0-30.9, adult; Z79.51 Long term (current) use of inhaled steroids; Z79.891 Long term (current) use of opiate analgesic; Z98.890 Other specified postprocedural states; Z90.49 Acquired absence of other specified parts of digestive tract; Z80.0 Family history of malignant neoplasm of digestive organs
CPT/HCPCS: 58661; 36415; 86850; 86900; 86901; 88305; A9270; J1100; J2003; J2250; J2405; J2704; J3010; J7120

== ENCOUNTER 2024-11-24 14:11 | Outpatient (CLI) | payer OTHER, SELFPAY ==
--- NOTE | ~2024-11-24 | US_ITS ---
Left upper extremity ULTRASOUND (Doppler ultrasound interrogation techniques used as needed for this exam.) Ordering provider: Angel Mcwilliams MD History: . R22.32 - Localized swelling, mass and lump, left upper limb . Comparison: None. FINDINGS/impression: Slightly hyperechoic area is seen in the left upper arm. This area measures 2.8 x 3.9 x 1.4 cm. This may represent a lipoma or a mass. Further evaluation advised. Reviewed, dictated and finalized at location A.
--- OUTSIDE RECORDS SUMMARY | 2024-11-24 14:17 | XMS_ITS | Clinical Summary ---
Author Organization [facility] Address Counts include 234 beds at the [facility] [place] [address] Care Team Providers Care Aerial Applicator Pilot Name Role Phone Natalya Huynh Primary Care Provider [phone] Allergies Active Allergy Reactions Criticality Noted Date [...] Sex Assigned at Female 07/13/2021 9:32 AM APPIAN BPM DEVELOPER Legal Sex Female 4:04 PM CDT Gender Identity Female 07/13/2021 9:32 AM APPIAN BPM DEVELOPER Sexual Orientation Straight 07/13/2021 9: 32 AM APPIAN BPM DEVELOPER Last Filed Vital Signs Vital Sign Reading [...] Vaccine (1 - season) 2024 PHQ-2 (Physician [place]) 07/16/2024 12/25/2023 Mammogram Screening 08/11/2024 08/11/2022, 12/17/2020, [...] 11/09/2017 us Documents Scanned SCANNING Final Result [facility] from Last 3 Months or Most Recently Relevant to Health Maintenance Insurance [employer] Care Teams Aerial Applicator Pilot Relationship Specialty Start Date End Date Natalya Huynh APNP Family & Internal Medicine [address] [address] PCP - General ADVANCED PRACTICE DEWATERER OPERATOR 10/31/17
--- OUTSIDE RECORDS SUMMARY | 2024-11-24 14:17 | XMS_ITS | Encounter Summary ---
Author Organization [facility] Address [address] [place] [address] Care Team Providers Care Auditing Control Clerk Name Role Phone Natalya Huynh Primary Care Provider [phone] Encounter Details Date Type Department Care Team (Late st Contact Info) Description 03/01/2021 [facility] Physical Therapy [address] [place] [address] Vinita Causey, PT Social [...] Sex Assigned at Female 07/13/2021 9:32 AM SENIOR LABEL SPECIALIST Legal Sex Female 4:04 PM CDT Gender Identity Female 07/13/2021 9:32 AM SENIOR LABEL SPECIALIST Sexual Orientation Straight 07/13/2021 9: 32 AM SENIOR LABEL SPECIALIST documented as of this encounter Plan of [...] CDT COVID-19 Confirmed 04/29/2021 04/29/2021 12:32 AM SENIOR LABEL SPECIALIST COVID-19 Rule Out 08/11/2022 08/11/2022 08/11/2022 11:22 AM SENIOR LABEL SPECIALIST COVID-19 Rule Out 08/11/2022 08/11/2022 08/12/2022 2:32 PM SENIOR LABEL SPECIALIST COVID-19 Rule Out 03/30/2023 03/21/2023 03/30/2023 11:38 AM CDT COVID-19 Rule Out 04/04/2023 03/21/2023 04/11/2023 12:32 AM CDT Assessment Noted Time PHQ-9 Depression Total Score: 8 10/06/19 21 11:04 AM CDT documented as of this encounter Care Teams Auditing Control Clerk Relationship Specialty Start Date End Date Natalya Huynh APNP Family & Internal Medicine [address] [address] PCP - General ADVANCED PRACTICE MANAGER SECONDARY 10/31/17 documented as of this encounter
--- OUTSIDE RECORDS SUMMARY | 2024-11-24 14:17 | XMS_ITS | Continuity of Care Document ---
Author Organization [facility] Address [address] [place] [address] [place] [address] Phone Care Team Providers Care Career Information Specialist Name Role Phone Pete Gamboa MD Unavailable Unavailable Allergies, Adverse Reactions, Alerts Substance Reaction Status Criticality piroxicam Active No Information codeine Active No Information Medications Medication Instructions Dosage Effective Dates (start - stop) Status Comments No Drug Therapy Prescribed Procedures Procedure Date PREV VISIT, NEW, AGE 40-64 OFFICE/OUTPATIENT VISIT, [facility] Advance Directives Directive Yes / No Effective Date File Name No Information Encounters Encounter Description Practice Location Reason(s) For Visit Diagnoses Date Provider Providers Copied on Encounter PREV VISIT, NEW, AGE 40-64 [facility], [address] [place], [place], [id number], tel:[phone] [facility] PHysical (chief complaint) Encounter for general adult medical exam w abnormal findingsGERD w/o esophagitisFamily history of other diseases of the digestive system [email or web address] [facility] [place], [id number] , [place]. tel:[phone] Referring Provider: Pete Gamboa [address] [facility] [place], [id number]. tel:[phone] Family History Family Member Type Diagnosis Age [...] Mental Status Date Cognitive Assessment Orientation - [place] ed to time, place, person, situation.
== END 2024-11-24 14:12 | disposition home or self-care (01) ==
PROVIDERS: PCP Nurse Practitioner Family; Visit Provider Surgery
DX: R22.32 Localized swelling, mass and lump, left upper limb (principal)
CPT/HCPCS: 76882

== ENCOUNTER 2024-12-01 14:33 | Outpatient (CLI) | payer OTHER, SELFPAY ==
--- NOTE | ~2024-12-01 | CT_ITS ---
Procedure: CT shoulder LT wo con Ordering provider: Angel Mcwilliams MD History: . R22.32 - Localized swelling, mass and lump, left upper limb . Comparison: None. Technique: Thin slice axial CT of the No IV contrast was given. Sagittal and coronal reformatted imag es were also obtained and reviewed. Radiation reduction technique utilized.The dose-length product wa s 243.8 mGy-cm. Findings: BONES: No fracture or dislocation. JOINT SPACES: Normal. SOFT TISSUES: A lipoma is seen in the deltoid muscle measuring 2.23 x 3.8 cm. IMPRESSION: Lipoma seen in the deltoid muscle. No fracture or dislocation. Reviewed, dictated and finalized at location A.
--- OUTSIDE RECORDS SUMMARY | 2024-12-01 14:36 | XMS_ITS | Encounter Summary ---
Author Organization [facility] Address [address] [place] [address] Care Team Providers Care Crushing Machine Operator Name Role Phone Natalya Huynh Primary Care Provider [phone] Encounter Details Date Type Department Care Team (Late st Contact Info) Description 03/01/2021 [facility] Physical Therapy [address] [place] [address] Vinita Causey, PT Social History [...] Sex Assigned at Female 07/13/2021 9:32 AM EQUIPMENT MECHANIC Legal Sex Female 4:04 PM CDT Gender Identity Female 07/13/2021 9:32 AM EQUIPMENT MECHANIC Sexual Orientation Straight 07/13/2021 9: 32 AM EQUIPMENT MECHANIC documented as of this encounter Plan [...] CDT COVID-19 Confirmed 04/29/2021 04/29/2021 12:32 AM EQUIPMENT MECHANIC COVID-19 Rule Out 08/11/2022 08/11/2022 08/11/2022 11:22 AM EQUIPMENT MECHANIC COVID-19 Rule Out 08/11/2022 08/11/2022 08/12/2022 2:32 PM EQUIPMENT MECHANIC COVID-19 Rule Out 03/30/2023 03/21/2023 03/30/2023 11:38 AM CDT COVID-19 Rule Out 04/04/2023 03/21/2023 04/11/2023 12:32 AM CDT Assessment Noted Time PHQ-9 Depression Total Score: 8 10/06/19 21 11:04 AM CDT documented as of this encounter Care Teams Crushing Machine Operator Relationship Specialty Start Date End Date Natalya Huynh APNP Family & Internal Medicine [address] [address] PCP - General ADVANCED PRACTICE ASSET PROTECTION OFFICER 10/31/17 documented as of this encounter
--- OUTSIDE RECORDS SUMMARY | 2024-12-01 14:36 | XMS_ITS | Clinical Summary ---
Author Organization [facility] Address [facility] [place] [address] Care Team Providers Care Bus Dispatcher [place] Name Role Phone Natalya Huynh Primary Care [...] Sex Assigned at Female 07/13/2021 9:32 AM BENCH ASSEMBLER ELECTRICAL Legal Sex Female 4:04 PM CDT Gender Identity Female 07/13/2021 9:32 AM BENCH ASSEMBLER ELECTRICAL Sexual Orientation Straight 07/13/2021 9: 32 AM BENCH ASSEMBLER ELECTRICAL Last Filed Vital Signs Vital Sign Reading [...] Vaccine (1 - season) 2024 PHQ-2 (Physician [place]) 07/16/2024 12/25/2023 Mammogram Screening 08/11/2024 08/11/2022, 12/17/2020, [...] 11/09/2017 us Documents Scanned SCANNING Final Result [facility] from Last 3 Months or Most Recently Relevant to Health Maintenance Insurance [employer] Care Teams Bus Dispatcher [place] Relationship Specialty Start Date End Date Natalya Huynh APNP Family & Internal Medicine [address] [address] PCP - General ADVANCED PRACTICE PIECER 10/31/17
--- OUTSIDE RECORDS SUMMARY | 2024-12-01 14:36 | XMS_ITS | Continuity of Care Document ---
Author Organization [facility] Address [email or web address] [address] [place] [address] Phone Care Team Providers Care Assistant Chief Train Dispatcher Name Role Phone Pete Gamboa MD Unavailable [...] on Encounter PREV VISIT, NEW, AGE 40-64 [facility], [address] [place], [place], [id number], tel:[phone] [facility] PHysical (chief complaint) Encounter for general adult medical exam w abnormal findingsGERD w/o esophagitisFamily history of other diseases of the digestive system [address] [facility] [place], [id number] , [place]. tel:[phone] Referring Provider: Pete Gamboa [address] [facility] [place], [id number]. tel:[phone] Family History Family Member Type Diagnosis Age At Onset Sister Problem (finding) Alive and well Mother Problem (finding) Alive and well Father Problem (finding) liver CA (Cause Of Deat h) 64 Payers Payer name Insurance type Covered republican ID Authoriza tion(s) No Information Social History [...] Mental Status Date Cognitive Assessment Orientation - [place] ed to time, place, person, situation.
== END 2024-12-01 14:34 | disposition home or self-care (01) ==
PROVIDERS: PCP Nurse Practitioner Family; Visit Provider Surgery
DX: D17.79 Benign lipomatous neoplasm of other sites (principal)
CPT/HCPCS: 73200

== ENCOUNTER 2024-12-09 08:15 | Emergency (ER) | payer OTHER, SELFPAY ==
--- OUTSIDE RECORDS SUMMARY | 2024-12-09 08:19 | XMS_ITS | Continuity of Care Document ---
Author Organization [facility] Address [address] [place] [address] [place] [address] Phone Care Team Providers Care Apartment Property Manager Name Role Phone Pete Gamboa MD Unavailable Unavailable Allergies, Adverse Reactions, Alerts Substance Reaction Status Criticality piroxicam Active No Information codeine Active No Information Medications Medication Instructions Dosage Effective Dates (start - stop) Status Comments No Drug Therapy Prescribed Procedures Procedure Date PREV VISIT, NEW, AGE 40-64 OFFICE/OUTPATIENT VISIT, [facility] Advance Directives Directive Yes / No Effective Date File Name No Information Encounters Encounter Description Practice Location Reason(s) For Visit Diagnoses Date Provider Providers Copied on Encounter PREV VISIT, NEW, AGE 40-65 [facility], [address] [place], [place], [id number], tel:[phone] [facility] PHysical (chief complaint) Encounter for general adult medical exam w abnormal findingsGERD w/o esophagitisFamily history of other diseases of the digestive system [address] [employer] [facility] [place], [place], [id number] , [place]. tel:[phone] Referring Provider: Pete Gamboa [address] [facility] [place], [id number]. tel:[phone] Family History Family Member Type Diagnosis Age [...] Mental Status Date Cognitive Assessment Orientation - [place] ed to time, place, person, situation.
--- OUTSIDE RECORDS SUMMARY | 2024-12-09 08:20 | XMS_ITS | Continuity of Care Document ---
Author Organization [facility] Address [address] [place] [address] [place] [address] Phone Care Team Providers Care Spout Worker Name Role Phone Pete Gamboa MD Unavailable Unavailable Allergies, Adverse Reactions, Alerts Substance Reaction Status Criticality piroxicam Active No Information codeine Active No Information Medications Medication Instructions Dosage Effective Dates (start - stop) Status Comments No Drug Therapy Prescribed Procedures Procedure Date PREV VISIT, NEW, AGE 40-64 OFFICE/OUTPATIENT VISIT, [facility] Advance Directives Directive Yes / No Effective Date File Name No Information Encounters Encounter Description Practice Location Reason(s) For Visit Diagnoses Date Provider Providers Copied on Encounter PREV VISIT, NEW, AGE 40-64 [facility], [address] [place], [place], [id number], tel:[phone] [facility] PHysical (chief complaint) Encounter for general adult medical exam w abnormal findingsGERD w/o esophagitisFamily history of other diseases of the digestive system [address] [employer] [facility] [place], [id number] , [place]. tel:[phone] Referring Provider: Pete Gamboa [address] [facility] [place], [id number]. tel:[phone] Family History Family Member Type Diagnosis Age [...] Mental Status Date Cognitive Assessment Orientation - [place] ed to time, place, person, situation.
[2024-12-09 08:28] VITALS: BP 147/75; PULSE 82; RESP 18; TEMP 36.6; O2SAT 99
--- NOTE | 2024-12-09 08:43 | ED_ITS ---
HPI - URI/Sore Throat General Chief Complaint: Upper Respiratory Infection Stated Complaint: Sinus Infection / sore throat Time Seen by Provider: 12/09/24 08:44 Source: patient, RN notes reviewed and old records reviewed Mode of arrival: ambulatory Limitations: no limitations History of Present Illness HPI Narrative: 54 year old female who presents to [facility] care with complaints of sore throat, headache, cough, nasal congestion, body aches with chills and sweats for the past 2 days. Patient reports that she has not taken her temperature. Patient reports that she has history of sinus problems and frequently gets sinus infections. She reports that she did take some Sudafed yesterday evening and she uses daily nasal spray MD elicited complaint: cough and sore throat Pertinent past history: sinusitis Onset (ago): day(s) (2) Consistency: constant Pain scale (0-10): 6 Able to tolerate fluids by mouth: Yes Treatments prior to arrival: other (Sudafed and nasal spray) Related Data Home Medications ?Medication ?Instructions ?Recorded ?Confirmed ?Last Taken ?Type estradiol 1 mg tablet 1 mg PO DAILY 11/10/24 11/18/24 Unknown History mometasone 50 mcg/actuation nasal 2 spray intranasal DAILY 11/10/24 11/18/24 Unknown History spray multivitamin (Daily Multi-Vitamin 1 tablet PO DAILY 11/18/24 11/18/24 Unknown History tablet) Allergies Allergy/AdvReac Type Severity Reaction Status Date / Time latex Allergy Severe Nausea Verified 12/09/24 08:30 piroxicam Allergy Severe Swelling Verified 12/09/24 08:30 meloxicam Allergy Unknown Swelling Verified 12/09/24 08:30 codeine AdvReac Mild NAUSEA/VOMI Verified 12/09/24 08:30 TING Review of Systems Review of Systems: CONSTITUTIONAL:Reports malaise, chills, sweats, unknown if any fever. EYES: Denies visual changes, redness, or discharge. ENT: Reports rhinorrhea, congestion, sinus pain, otalgia and sore throat. CARDIOVASCULAR: Denies chest pain, palpitations, or edema. RESPIRATORY: Reports cough.? Denies dyspnea. GASTROINTESTINAL: Denies abdominal pain, nausea, vomiting, diarrhea SKIN: Denies rash or itching. MUSCULOSKELETAL: Reports myalgia. NEUROLOGIC: Reports headache. All systems reviewed & are unremarkable except as noted in HPI and below PMFSH Past Medical History Medical History History of sinus problem Headache GERD (gastroesophageal reflux disease) High blood pressure never on medications Menopausal state Surgical History Surgical History History of cholecystectomy History of hysterectomy with oophorectomy still has one ovary Family History Family History Father Family history of primary malignant neoplasm of liver Cancer Alcoholism Hypertension Diabetes mellitus Sibling Depression Social History Social History Smoking status: Never smoker Alcohol intake: never Substance use: never Do You Feel Safe in your Home?: Yes Lack of Transportation: No Lack of Food: Never True Current Housing: I Have Housing Concerned About Future Housing: No Difficulty Paying Gas/Electric Bills: No Difficulty Paying for Meds: No Currently Unemployed: YES Education: High School Diploma/GED Difficulty w/ Childcare or Family Care: No Living arrangements: with family Occupation/Education: occupation Gender identity (if verbalized by the patient): Female Sexual Orientation (if Verbalized by the Patient): Straight or Heterosexual Spiritual care concerns: No Agree to blood products: Yes Comments At time of signature, agree with nursing past medical, surgical, social and family history. There is no relevant family history pertinent to the presenting complaint Exam Narrative: GENERAL: Well-appearing, well-nourished, and in no acute distress. HEAD: Normocephalic EYES: PERRLA, conjunctivae clear ENT: Nares clear, turbinates edematous and erythematous, clear discharge frontal headache. Mucous membranes moist. TM pearly howell with dull light reflex bilaterally; no tragal tenderness. Oropharynx erythematous without lesions. Tonsils not enlarged and without exudate, no drooling, no hoarseness, no trismus, uvula midline.post nasal drainage NECK: Supple. No lymphadenopathy CHEST: Clear to auscultation, breath sounds equal. No wheezing, rhonchi, rales, or stridor. No respiratory distress, speaks in full sentences.dry cough noted SAO2 99% on room air HEART: Regular rate and rhythm. No murmur heard. SKIN: Warm, dry, no rash. NEURO: Alert and oriented x3. PSYCH: Normal mood and affect Course Course Emergency Course: Patient is aware of diagnosis, understands and agrees to treatment plan.? Anticipatory guidance given.? Patient agrees to follow-up as directed and is aware of reasons to seek care at the emergency department. Portions of this record may have been created with voice recognition software Level of Care: Express Care Visit Vital Signs Vital signs: Vital Signs Temperature 36.6 C 12/09/24 08:28 Pulse Rate 82 12/09/24 08:28 Respiratory Rate 18 12/09/24 08:28 Blood Pressure 147/75 H 12/09/24 08:28 Pulse Oximetry 99 12/09/24 08:28 Oxygen Delivery Room Air 12/09/24 08:28 Temperature 36.6 C 12/09/24 08:28 Pulse Rate 82 12/09/24 08:28 Respiratory Rate 18 12/09/24 08:28 Blood Pressure 147/75 H 12/09/24 08:28 Pulse Oximetry 99 12/09/24 08:28 Oxygen Delivery Room Air 12/09/24 08:28 Reviewed MDM - URI/Sore Throat MDM Narrative Medical decision making narrative: Differential diagnosis considered: Camara virus, strep pharyngitis, allergic rhinitis, upper respiratory tract infection, sinusitis, rhinosinusitis, nasopharyngitis. viral pharyngitis, otitis media, otitis externa, pneumonia, bronchitis, viral cough syndrome, viral syndrome, and influenza.? Exam findings show no acute concerns or changes; patient is non-toxic appearing and is in no distress.? Patient is appropriate for outpatient treatment and follow-up. Differential Diagnosis Differential diagnosis: Likely upper respiratory infection, sinusitis, viral infection, influenza, pharyngitis and other (strep pharyngitis, COVID) Medical Records Attestation: I reviewed the patient's medical records. Lab Data Attestation: I reviewed the patient's lab results. Lab results narrative: strep screen negative, culture sent, COVID antigen negative, Influenza A negative, Influenza B negative Labs: Lab Results 12/09/24 Range/Units 08:46 POC Influenza A Ag Negative (Negative) POC Influenza B Ag Negative (Negative) POC SARS CoV-2 Ag Negative (Negative) POC Grp A Strep Screen Negative (Negative) reviewed Critical Care Time Critical Care Time Critical Care Time: No Discharge Plan Discharge Clinical Impression: Bacterial sinusitis Patient Disposition: Home Condition: Stable Instructions: Antibiotic Form, Sinusitis (ED) Additional Instructions: Increase fluids especially juices and water [id number] cough and cold medicine of your choice for your symptoms Zyrtec Claritin or Monica daily include Coricidin brand decongestant Continue your nasal spray daily Tylenol or ibuprofen for any fever pain heat to the face 20-30 minutes 4-6 times a day for pain Salt water gargles, throat lozenges or throat sprays as desired Antibiotic as directed--finished the medication If your symptoms persist, change or worsen significantly before you can contact your personal physician then please, without delay, go to the emergency department for further evaluation. Follow-up with PCP in 7-10 days or sooner if needed Follow up with PCP soon in regards to your blood pressure which is elevated above threshold for referral. Blood pressure above 120/80 may indicate pre- hypertension. 147/75 Patient Language: Rwandan Prescriptions: New doxycycline monohydrate 100 mg capsule 100 mg PO BID Qty: 14 0RF Rx Instructions: Take with food No Action estradiol 1 mg tablet 1 mg PO DAILY Rx Instructions: off 1 week; repeat cycle mometasone 50 mcg/actuation spray,non-aerosol 2 spray intranasal DAILY Rx Instructions: administer into each nostril multivitamin [Daily Multi-Vitamin] Tablet 1 tablet PO DAILY Follow-up/Referrals: Ritu Dickerson APRN [Primary Care Provider] - Stand Alone Forms: Work/School Release IP Time of Disposition: 08:57 Quality Tonie Coma Scale Eyes: Open Verbal: Oriented and Alert Motor: Follows Commands Pride Coma Total Score: 15
[2024-12-09 08:47] LABS: EDCOVIDSCREEN Negative (Negative); EDINFLUASCREEN Negative (Negative); EDINFLUBSCREEN Negative (Negative); EDSTREPNEGPOS1 Negative (Negative)
== END 2024-12-09 09:02 | disposition home or self-care (01) ==
PROVIDERS: Emergency Provider Registered Nurse; PCP Nurse Practitioner Family
DX: J32.9 Chronic sinusitis, unspecified (principal); Z20.822 Contact with and (suspected) exposure to COVID-19; K21.9 Gastro-esophageal reflux disease without esophagitis
CPT/HCPCS: 87081; 87426; 87804; 87880; 99213; G0463

== ENCOUNTER 2024-12-25 02:09 | Day surgery (SDC) | payer OTHER, SELFPAY ==
[2024-11-18 14:26] VITALS: BMI 30.9
--- NOTE | 2024-11-18 14:27 | PC.NURSE ---
Addendum entered by Rudy Johnson RN 12/18/24 11:03: Juana says no changes in health history since previous interview. Told her to be here at 1200 on 12-25-2024 for surgery at 2pm. No other changes to instructions. Original Note: Report to the Outpatient Waiting Room, entrance under the green pavilion located off [facility], at time _1130_ on date _[id number]_. Planned Procedure Time: _130pm_.? Time changes happen often and if your time is changed the preop area will call you the afternoon before. - You and your visitor will be asked to self-screen and do not enter if you have any COVID symptoms. Please call surgeon if you need to reschedule. - A mask is optional within the hospital at this time. Patients may have clear liquids (water, carbonated beverages, clear teas, apple juice) until 3 hours prior to surgery with a maximum of 20 ounces. - No food from midnight until time of surgery and no smoking, or chewing tobacco (or any form of nicotine). No chewing gum, candy or mints. Take only the following medications with a SIP of water on the morning of surgery: __Nasal spray if needed___ DO NOT STOP ANY OF YOUR OTHER PRESCRIPTION MEDICATIONS PRIOR TO SURGERY EXCEPT THE FOLLOWING Hold all vitamins and supplements for 3 days per anesthesiologist. Medications to discontinue per physician Date to take last eyzd___[id number]___ Please no make-up, nail sinhala, hairspray, perfume, deodorant, or body powder the day of surgery.? No jewelry (including any body piercings) or valuables the day of surgery, leave them at home.? Please take a shower or bath the night before, or the morning of, surgery with an antibacterial soap.? Wear comfortable, loose fitting clothing.? - Jewelry must be removed prior to entering the operating room.? Rings and piercings that are not removed may be cut off. - The hospital will not accept responsibility for valuables.? - Please leave all valuables, including medications, at home the day of surgery. If you are going home after surgery, a licensed airport driver must drive you home.? - NO public transportation without another adult if you receive anesthesia. - We recommend that an adult stay with you for 24 hours following discharge. - We also recommend that you do not drive, make important decision, drink alcoholic beverages, or take any drugs that were not prescribed by your health care provider for at least 24 hours after your discharge time. Follow any additional instructions given to you from your surgeon. Telephone instructions given to __Juana__and asked if any additional questions and then verbalized understanding. Patient advised to call surgeon office or pre surgery nurse liaison [phone] if any additional questions.
--- OUTSIDE RECORDS SUMMARY | 2024-11-27 00:07 | XMS_ITS | Clinical Summary ---
Author Organization [facility] Address [facility] [place] [address] Care Team Providers Care Vp Strategic Planning Name Role Phone Natalya Huynh Primary Care [...] Sex Assigned at Female 07/13/2021 9:32 AM BASS SINGER Legal Sex Female 4:04 PM CDT Gender Identity Female 07/13/2021 9:32 AM BASS SINGER Sexual Orientation Straight 07/13/2021 9: 32 AM BASS SINGER Last Filed Vital Signs Vital Sign Reading [...] 11:00 AM CDT Height 162.6 cm (5' 4) 12/25/2023 11:0 0 AM CDT Body Mass [...] Vaccine (1 - season) 2024 PHQ-2 (Physician [place]) 07/16/2024 12/25/2023 Mammogram Screening 08/11/2024 08/11/2022, 12/17/2020, [...] 11/09/2017 us Documents Scanned SCANNING Final Result [facility] from Last 3 Months or Most Recently Relevant to Health Maintenance Insurance [employer] Care Teams Vp Strategic Planning Relationship Specialty Start Date End Date Natalya Huynh APNP Family & Internal Medicine [address] [address] PCP - General ADVANCED PRACTICE DIRECTOR OF ASSESSMENT 10/31/17
--- OUTSIDE RECORDS SUMMARY | 2024-11-27 00:07 | XMS_ITS | Encounter Summary ---
Author Organization [facility] Address [address] [place] [address] Care Team Providers Care Assembler Molded Frames Name Role Phone Natalya Huynh Primary Care Provider [phone] Encounter Details Date Type Department Care Team (Late st Contact Info) Description 03/01/2021 [facility] Physical Therapy [address] [place] [address] Vinita Causey, PT Social History [...] Sex Assigned at Female 07/13/2021 9:32 AM QUALITY ASSURANCE AUDITOR Legal Sex Female 4:04 PM CDT Gender Identity Female 07/13/2021 9:32 AM QUALITY ASSURANCE AUDITOR Sexual Orientation Straight 07/13/2021 9: 32 AM QUALITY ASSURANCE AUDITOR documented as of this encounter Plan of [...] CDT COVID-19 Confirmed 04/29/2021 04/29/2021 12:32 AM QUALITY ASSURANCE AUDITOR COVID-19 Rule Out 08/11/2022 08/11/2022 08/11/2022 11:22 AM QUALITY ASSURANCE AUDITOR COVID-19 Rule Out 08/11/2022 08/11/2022 08/12/2022 2:32 PM QUALITY ASSURANCE AUDITOR COVID-19 Rule Out 03/30/2023 03/21/2023 03/30/2023 11:38 AM CDT COVID-19 Rule Out 04/04/2023 03/21/2023 04/11/2023 12:32 AM CDT Assessment Noted Time PHQ-9 Depression Total Score: 8 10/06/19 21 11:04 AM CDT documented as of this encounter Care Teams Assembler Molded Frames Relationship Specialty Start Date End Date Natalya Huynh APNP Family & Internal Medicine [address] [address] PCP - General ADVANCED PRACTICE CHIEF CONSTRUCTION INSPECTOR 10/31/17 documented as of this encounter
--- OUTSIDE RECORDS SUMMARY | 2024-11-27 00:07 | XMS_ITS | Continuity of Care Document ---
Author Organization [facility] Address [address] [place] [address] [place] [address] Phone Care Team Providers Care Ocean Forwarder Name Role Phone Pete Gamboa MD Unavailable Unavailable Allergies, Adverse Reactions, Alerts Substance Reaction Status Criticality piroxicam Active No Information codeine Active No Information Medications Medication Instructions Dosage Effective Dates (start - stop) Status Comments No Drug Therapy Prescribed Procedures Procedure Date PREV VISIT, NEW, AGE 40-64 OFFICE/OUTPATIENT VISIT, [facility] Advance Directives Directive Yes / No Effective Date File Name No Information Encounters Encounter Description Practice Location Reason(s) For Visit Diagnoses Date Provider Providers Copied on Encounter PREV VISIT, NEW, AGE 40-64 [facility], [address] [place], [place], [id number], tel:[phone] [facility] PHysical (chief complaint) Encounter for general adult medical exam w abnormal findingsGERD w/o esophagitisFamily history of other diseases of the digestive system [address] [employer] [facility] [place], [id number] , [place]. tel:[phone] Referring Provider: Pete Gamboa [address] [facility] [place], [id number]. tel:[phone] Family History Family Member Type Diagnosis Age [...] Mental Status Date Cognitive Assessment Orientation - [place] ed to time, place, person, situation.
--- NOTE | 2024-12-23 08:18 | P.SS_ITS ---
Same Day Admit/Disch: HPI History of Present Illness Chief complaint: Left Shoulder Subq Mass Narrative: Juana Kauffman is a 54 year old female who has noticed an enlarging mass on her anterior left shoulder. The mass is uncomfortable when the patient will sometimes have shooting pain down her left arm. 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 I saw her in the office in the mass measured 5 x 3.5 cm. I had ordered an ultrasound which was nondiagnostic. A CT scan was then done which showed this to be a lipoma of the deltoid with maximum dimension of 3.8 cm. Patient is taken to surgery at this time for excision of this left shoulder subcutaneous mass, most likely a lipoma. [facility] Past Medical History Medical History History of sinus problem Headache GERD (gastroesophageal reflux disease) High blood pressure never on medications Menopausal state Surgical History Surgical History History of cholecystectomy History of hysterectomy with oophorectomy still has one ovary Family History Family History Father Family history of primary malignant neoplasm of liver Cancer Alcoholism Hypertension Diabetes mellitus Sibling Depression Social History Social History Smoking status: Never smoker Alcohol intake: never Substance use: never Do You Feel Safe in your Home?: Yes Lack of Transportation: No Lack of Food: Never True Current Housing: I Have Housing Concerned About Future Housing: No Difficulty Paying Gas/Electric Bills: No Difficulty Paying for Meds: No Currently Unemployed: YES Education: High School Diploma/GED Difficulty w/ Childcare or Family Care: No Living arrangements: with family Occupation/Education: occupation Gender identity (if verbalized by the patient): Female Sexual Orientation (if Verbalized by the Patient): Straight or Heterosexual Spiritual care concerns: No Agree to blood products: Yes Same Day Admit/Disch: Med Pre-admit Medications Home Medications ?Medication ?Instructions ?Recorded ?Confirmed ?Type estradiol 1 mg tablet 1 mg PO DAILY 11/10/24 11/18/24 History mometasone 50 mcg/actuation nasal 2 spray intranasal DAILY 11/10/24 11/18/24 History spray multivitamin (Daily Multi-Vitamin 1 tablet PO DAILY 11/18/24 12/25/24 History tablet) tramadol 50 mg tablet 50 mg PO Q6H PRN pain #10 tabs 12/25/24 Rx Review of Systems Review of Systems All systems reviewed & are unremarkable except as noted in HPI and below ( HPI) Exam Const: General: comfortable, no acute distress, alert and awake HENMT: Head: normocephalic and atraumatic Mouth: Yes Normal oral and palatal mucosa present Eyes: Conjunctivae: conjunctivae normal Pupils: Equal, round and reactive pupils present EOM: EOMs intact bilaterally Neck: Neck: normal visual inspection, no lymphadenopathy and nontender Resp: Effort & Inspection: normal respiratory effort Auscultation: clear to auscultation bilaterally Cardio: Rate: regular rate Rhythm: regular rhythm Heart sounds: no gallops, no murmurs and no rubs GI: Inspection: non-distended GI Palp: Yes Soft to palpation, No Tenderness to palpation present (GI), No Hepatomegaly present and No Splenomegaly present Skin: Lesions: no lesions Rashes: no rashes Neuro: General: no focal motor deficits and CN's II-XI intact bilaterally Cranial nerves: Yes Equal, round and reactive pupils present, Yes Bilaterally intact EOM present, Yes facial symmetry and Yes Midline tongue present Speech: normal speech Motor exam (neuro): 5/5 motor strength present throughout and Motor abnormalities not present Extrem: General: no clubbing, cyanosis or edema and edema Left upper extremity: shoulder/upper arm ( 5 x 3 cm subcutaneous mass, firm and rubbery, mobile, and nontender. ) no tenderness, no ecchymosis, no crepitus and no unsual warmth Psych: Affect: normal affect Thought process: Normal thought process present Insight: Good insight present (Psych) DS: Summary Time Spent with Patient Time attestation: Total time spent providing and/or coordinating discharge services: DS: Admitting Diagnosis Discharge Date 12/25/2024 Admitting Diagnosis * symptomatic, enlarging subcutaneous mass left shoulder - CT scan shows this to be a lipoma of the deltoid area. After discussion, patient is taken to surgery now for excision under anesthesia. The procedure, risks, benefits have been discussed. The usual length of the surgery and length of recovery has been discussed. All questions were answered. She understands and agrees to go ahead. 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 johnson 12/25/2024 Discharge Plan Discharge Patient Disposition: Home Discharge Instructions: * Okay to bathe or shower tomorrow. Wash incision with soap and water when bathe or shower. * No lifting over 10 lb with left arm for 1 week. * May drive a car on 12/27/2024. * Prescription pain medicine order has been sent to your pharmacy. Feel free to use Tylenol as needed for pain as well. * Call for persistent drainage or bleeding, call for severe swelling or bruising, call for severe pain left shoulder or temperature over 100.5?. Also call for any other significant change in condition. * Resume your normal home medications and your usual diet. * See Dr. johnson in 2 weeks. Patient Language: Ukrainian Stand Alone Forms: General Discharge Instructions Follow-up/Referrals: Angel Johnson MD [Physician] - 2 Weeks (Call for appointment if you do not already have an appointment.) Discharge Medications: New tramadol 50 mg tablet 50 mg PO Q6H PRN (Reason: pain) Qty: 10 0RF Continued estradiol 1 mg tablet 1 mg PO DAILY Rx Instructions: off 1 week; repeat cycle mometasone 50 mcg/actuation spray,non-aerosol 2 spray intranasal DAILY Rx Instructions: administer into each nostril multivitamin [Daily Multi-Vitamin] Tablet 1 tablet PO DAILY
--- OUTSIDE RECORDS SUMMARY | 2024-12-25 02:11 | XMS_ITS | Continuity of Care Document ---
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 Name Role Phone Pete Gamboa MD Unavailable Unavailable Allergies, Adverse Reactions, Alerts Substance Reaction Status Criticality piroxicam Active No Information codeine Active No Information Medications Medication Instructions Dosage Effective Dates (start - stop) Status Comments No Drug Therapy Prescribed Procedures Procedure Date PREV VISIT, [facility], AGE 40-64 OFFICE/OUTPATIENT VISIT, [facility] Advance Directives Directive Yes / No Effective Date File Name No Information Encounters Encounter Description Practice Location Reason(s) For Visit Diagnoses Date Provider Providers Copied on Encounter PREV VISIT, NEW, AGE 40-64 [facility], [address] [place], [place], [id number], tel:[phone] [facility] PHysical (chief complaint) Encounter for general adult medical exam w abnormal findingsGERD w/o esophagitisFamily history of other diseases of the digestive system [address] [facility] [place], [place], [id number] , [place]. tel:[phone] Referring Provider: Pete Gamboa [address] [facility] [place], [id number]. tel:[phone] Family History Family Member Type Diagnosis Age At Onset Sister Problem (finding) Alive and well Mother Problem (finding) Alive and well Father Problem (finding) liver CA (Cause Of Deat h) 64 Payers Payer name Insurance type Covered green party ID Authoriza tion(s) No Information Social [...] Mental Status Date Cognitive Assessment Orientation - Leonard ed to time, place, person, situation.
[2024-12-25 12:00] VITALS: BMI 30.6
[2024-12-25 12:45] VITALS: BP 145/75; PULSE 88; RESP 16; TEMP 37.1; O2SAT 99
[2024-12-25] MEDS: LACTATED RINGERS 1,000 ML 30 ML IV CONT (12:45)
--- NOTE | 2024-12-25 13:37 | P.PNAN_ITS ---
Anes - Initial Pre Proc Eval Procedure: Operation Date: 12/25/24 14:00 Proposed Procedures p Excision Left Shoulder Subcutaneous Mass - Angel Mcwilliams MD Date/Time: 12/25/24 13:37 Surgeon: Angel Mcwilliams MD Pre Op Diagnosis: Left Shoulder Subq Mass Patient Data Age: 54 Gender: F Height: 1.63 m Weight: 81 kg Allergies Allergy/AdvReac Type Severity Reaction Status Date / Time latex Allergy Severe Nausea Verified 12/25/24 13:35 piroxicam Allergy Severe Swelling Verified 12/25/24 13:35 meloxicam Allergy Unknown Swelling Verified 12/25/24 13:35 codeine AdvReac Mild NAUSEA/VOMI Verified 12/25/24 13:35 TING Home Medications ?Medication ?Instructions ?Recorded ?Confirmed ?Type estradiol 1 mg tablet 1 mg PO DAILY 11/10/24 11/18/24 History mometasone 50 mcg/actuation nasal 2 spray intranasal DAILY 11/10/24 11/18/24 History spray multivitamin (Daily Multi-Vitamin 1 tablet PO DAILY 11/18/24 12/25/24 History tablet) Patient hx anesthesia problems: none Family hx anesthesia problems: none Results Review: All pre-operative results and documents have been reviewed as part of the pre- operative evaluation. [facility] Past Medical History Medical History History of sinus problem Headache GERD (gastroesophageal reflux disease) High blood pressure never on medications Menopausal state Surgical History Surgical History History of cholecystectomy History of hysterectomy with oophorectomy still has one ovary Family History Family History Father Family history of primary malignant neoplasm of liver Cancer Alcoholism Hypertension Diabetes mellitus Sibling Depression Social History Social History Smoking status: Never smoker Alcohol intake: never Substance use: never Do You Feel Safe in your Home?: Yes Lack of Transportation: No Lack of Food: Never True Current Housing: I Have Housing Concerned About Future Housing: No Difficulty Paying Gas/Electric Bills: No Difficulty Paying for Meds: No Currently Unemployed: YES Education: High School Diploma/GED Difficulty w/ Childcare or Family Care: No Living arrangements: with family Occupation/Education: occupation Gender identity (if verbalized by the patient): Female Sexual Orientation (if Verbalized by the Patient): Straight or Heterosexual Spiritual care concerns: No Agree to blood products: Yes Anes - Eval Final PreProcedure Day of Procedure 12/25/24 13:37 Patient weight: overweight Heart: regular rate and rhythm Lungs: clear to auscultation Airway: Mallampati scale class II Neurological: alert and oriented Last oral intake: >/= 8 hours ASA classification: II Emergent: no Anesthetic plan: proceed Anesthesia type and monitoring: general GIVS and standard monitoring Results Review: All pre-operative results and documents have been reviewed as part of the pre- operative evaluation. Informed Consent: The patient's anesthetic plan and its attendant risks and benefits were discussed with the patient/family/POA. Questions were solicited and answers pr ovided to the satisfaction of the patient/family/POA.
--- NOTE | 2024-12-25 14:09 | WPDHPUPDATE1 ---
History and Physical Update Update Date/Time: 12/25/24 14:09 History and Physical has been reviewed, including an updated exam of the patient. There are NO changes in the patient's condition. Risks, benefits, and alternatives have been discussed and questions answered. Patient agrees to proceed with procedure.
[2024-12-25] MEDS: ceFAZolin 2 GM/D5W 50 ML 2 GM/50 ML BAG IVPB (14:17)
[2024-12-25] MEDS: BUPIVACAINE/EPINEPHRINE 0.5% 50 ML VIAL 30 ML INFILTRATE (14:27)
--- NOTE | 2024-12-25 14:53 | S_PTH ---
PATIENT: Juana Kauffman LOC: [facility] U#:[id number] AGE/SX: 54/F ROOM: RE12/25/[address]: Angel Mcwilliams MD : 1970 BED: DIS: 12/25/2024 SPEC #: [id number] RECD: 12/26/24 08:28 STATUS: KEYLA REQ #: [id number] AVRIL: 12/25/24 14:[address]: Angel Mcwilliams DEPT: [facility] Surgical RECD BY: Leela Kasper ENTERED: 12/26/24 08:29 SP TYPE: Surgical OTHR DR: Ritu Dickerson, FILEMON Tissues: A - Mass Procedures: Hematoxylin and Eosin Stain Gross and Microscopic Level 3
[2024-12-25 15:10] VITALS: BP 96/44; PULSE 79; RESP 16; O2SAT 100
[2024-12-25 15:40] VITALS: BP 119/65; PULSE 91; RESP 18; O2SAT 99
--- NOTE | 2024-12-25 16:00 | W.PM.PROC2 ---
Procedure Note - Detailed Date of Procedure 12/25/24 Pre-op Diagnosis Left Shoulder Subq Mass Post-op Diagnosis Same (Left shoulder intramuscular mass) Procedure Performed Excision 3.8 cm intramuscular lipoma left shoulder Surgeon Angel Mcwilliams MD [employer] Sadie ROY Anesthesia General (G IV S) and Local (0.5% Marcaine with epinephrine) Indications Patient has an enlarging subcutaneous mass on the anterior aspect of her left shoulder. It was 4-5 cm in diameter by palpation. It has been getting larger and is occasionally painful. She had a CT scan which showed this to be an intramuscular deltoid lipoma. She is taken to surgery now for excision Findings Intramuscular lipoma Description of Procedure Patient was taken to surgery and placed in a semi recumbent position with the head elevated about 30?. The left shoulder where the mass had been marked preoperatively was prepped and draped. The proposed incision was marked on the skin. Local was infiltrated into the skin and the subcutaneous. Field block was infiltrated around the subcutaneous mass as well. Incision was then made and dissection was carried down through the skin and the superficial subcutaneous. We then encountered a smooth, rubbery, subcutaneous mass that had numerous thin muscle fibers from the deltoid running over the top of it. I dissected the lateral borders of the mass and then dissected between the deltoid muscle fibers to get down to the actual mass. This appeared to be a lipoma, consistent with the CT scan report. A combination of blunt and sharp dissection was then used to dissect the intramuscular mass away from the deltoid fibers and up out of the wound. It is last remaining attachments to the deltoid muscle were carefully divided. Cautery was used for hemostasis. The mass was removed in 1 piece and was measured. It was 3.8 cm in greatest dimension. It was passed off to pathology in formalin. The wound was inspected and was hemostatic. Landry's fascia was then closed with interrupted 4-0 Vicryl suture. More superficial subcutaneous interrupted 4-0 Vicryl sutures were then placed. Finally the skin was closed with a running 4-0 Monocryl skin suture. The wound was dressed with Exofin surgical adhesive. Patient was then awakened and taken to outpatient surgery in good condition. Sponge and needle counts were correct x2. Estimated Blood Loss -2 Drains No Packing No Pathology Yes (Intramuscular mass consistent with lipoma) Complications None Condition Stable Disposition Same day [facility] Billing Surgery - Charge Forward: Surgery Billing (Excision intramuscular 3.8 cm mass with no margin)
[2024-12-25 16:10] VITALS: BP 133/69; PULSE 86; RESP 16; O2SAT 99
[2024-12-25] MEDS: oxyCODONE HCL (*CRX) 5 MG TAB IR PO (16:12)
[2024-12-25] MEDS: ONDANSETRON INJ 4 MG/2 ML VIAL IV PUSH (16:14)
[2024-12-25 16:40] VITALS: BP 142/75; PULSE 86; RESP 16
== END 2024-12-25 16:45 | disposition home or self-care (01) ==
PROVIDERS: PCP Nurse Practitioner Family; Visit Provider Surgery
PROC: (CPT 23071; principal; 2024-12-25 14:00)
DX: D17.9 Benign lipomatous neoplasm, unspecified (principal); G89.18 Other acute postprocedural pain; I10 Essential (primary) hypertension; K21.9 Gastro-esophageal reflux disease without esophagitis; Z79.891 Long term (current) use of opiate analgesic; Z98.890 Other specified postprocedural states; Z90.49 Acquired absence of other specified parts of digestive tract; Z80.0 Family history of malignant neoplasm of digestive organs
CPT/HCPCS: 23071; 88304; A9270; J0690; J1100; J2003; J2250; J2371; J2405; J2704; J3010; J7120

== ENCOUNTER 2025-03-18 15:11 | Outpatient (CLI) | payer OTHER, SELFPAY ==
--- OUTSIDE RECORDS SUMMARY | 2017-02-07 05:30 | XMS_ITS | Continuity of Care Document ---
Author Organization [facility] Address [address] [place] [address] [place] [address] Phone Care Team Providers Care Tip Cutter Name Role Phone Pete Gamboa MD Unavailable Unavailable Allergies, Adverse Reactions, Alerts Substance Reaction Status Criticality piroxicam Active No Information codeine Active No Information Medications Medication Instructions Dosage Effective Dates (start - stop) Status Comments No Drug Therapy Prescribed Procedures Procedure Date PREV VISIT, NEW, AGE 40-64 OFFICE/OUTPATIENT VISIT, [facility] Advance Directives Directive Yes / No Effective Date File Name No Information Encounters Encounter Description Practice Location Reason(s) For Visit Diagnoses Date Provider Providers Copied on Encounter PREV VISIT, NEW, AGE 40-64 [facility], [address] [place], [place], [id number], tel:[phone] [facility] PHysical (chief complaint) Encounter for general adult medical exam w abnormal findingsGERD w/o esophagitisFamily history of other diseases of the digestive system [address] [facility] [place], [place], [id number] , [place]. tel:[phone] Referring Provider: Pete Gamboa [address] [facility] [place], [place], [id number]. tel:[phone] Family History Family Member Type Diagnosis Age At Onset Sister Problem (finding) Alive and well Mother Problem (finding) Alive and well Father Problem (finding) liver CA (Cause Of Deat h) 64 Payers Payer name Insurance type Covered constitution party ID Authoriza tion(s) No Information Social History Type Description Quantity Date Captured Comments Alcohol Use Details No Caffeine Use Details Unknown Tobacco Use Status Never smoked tobacco 2016 Smoking Status Never smoker Non-Smoking Tobacco Use Details : No Details Available : No Details Available Sex Female Vital Signs Date / Time: Height Weight BMI Pulse Rate Blood Pressure Temperature Respiratory Rate Body Surface Area Head Circumference BMI percentile Pulse Ox Inhaled Ox 11:50 AM 64.00 in 158.80 lbs 27.2 6 kg/m eter (2) 72 /min 112/76 mm[Hg] 97.4 F 16 /min Chief Complaint And Reason For Visit From encounter dated '02/07/2017 10:30'. PHysical (chief complaint). Description: Pt needs annual physical. Pt is s/p gallbaldder removal 3 weeks ago. pt denies any abd pain. Pt has very mild heartburn and she takes zantac PRN only Pt needszantac 1-2 per week. Pt states that her father of liver CA for unknown reason. Pt not sure if he has liver mets or liver cirrhosis. Pt thinks that her father did consume large amount of alcohol.Pt denies any other complaints Plan Of Treatment Date Type Action Status Referral Ordered: US EXAM, ABDOM, COMPLETE ordered Referral Ordered: MAMMOGRAM, SCREENING ordered History Of Present Illness Encounter Date Complaint History Of Prese nt Illness PHysical Pt needs annual physical. Pt is s/p gallbaldder removal 3 weeks ago. pt denies any abd pain. Pt has very mild heartburn and she takes zantac PRN only Pt needs zantac 1-2 per week. Pt states that her father of liver CA for unknown reason. Pt not sure if he has liver mets or liver cirrhosis. Pt thinks that her father did consume large amount of alcohol. Pt denies any other complaints Medications Administered Medication Instructions Dosage Effective Dates (start - stop) Status Comments No Drug Therapy Prescribed Instructions Date Instruction Additional Infor yuridia Prescribed Activity and Exercise Education Related to Dietary Surveillance and Counseling Prescribed Diet Educ ation/Lifestyle Education Regarding Diet Related to Dietary Surveillance and Counseling Increase physical activity Relat ed to Encounter for general adult medical exam w abnormal findings Weight management Related to Enc ounter for general adult medical exam w abnormal findings Diet and exercise Related to Enc ounter for general adult medical exam w abnormal findings Avoid provocative fo ods: citrus, alcohol, coffee, chocolate, mints Related to GERD w/o esophagitis Eat smaller meals, n o eating three hours prior to bedtime Related to GERD w/o esophagitis Elevate head of bed prior to sle ep Related to GERD w/o esophagitis Assessments Type Assessment Date assessment Encounter for general adult medi tab exam w abnormal findings assessment GERD w/o esophagitis assessment Family history of other diseases of the digestive system Mental Status Date Cognitive Assessment Orientation - [place] ed to time, place, person, situation.
--- NOTE | ~2025-03-18 | XR_ITS ---
XR knee RT min 4V 03/18/2025 15:59 Indication: Right knee pain Procedure: 4 views right knee Comparison: No prior studies for comparison. Findings: No fracture, subluxation or dislocation. No joint effusion. 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 No significant joint effusion. Impression: 1: No acute bone or joint abnormality. Reviewed, dictated and finalized at location O. Impression: 1: No acute bone or joint abnormality.
--- NOTE | ~2025-03-18 | XR_ITS ---
XR knee LT min 4V 03/18/2025 15:59 INDICATION: Left knee pain PROCEDURE: 4 views left knee COMPARISON: No prior studies for comparison. FINDINGS: Fracture, dislocation or subluxation is not identified. The soft tissues appear within normal limits. No foreign bodies are identified. IMPRESSION: 1: NO ACUTE BONE OR JOINT ABNORMALITY IDENTIFIED. Reviewed, dictated and finalized at location O.
--- OUTSIDE RECORDS SUMMARY | 2025-03-18 16:39 | XMS_ITS | Encounter Summary ---
Author Organization [facility] Address [address] [place] [address] Care Team Providers Care Hvac Field Service Technician Name Role Phone Natalya Huynh Primary Care Provider [phone] Encounter Details Date Type Department Care Team (Late st Contact Info) Description 03/01/2021 [facility] Physical Therapy [address] [place] [address] Vinita Causey, PT Social History [...] Sex Assigned at Female 07/13/2021 9:32 AM CNC LATHE PROGRAMMER Legal Sex Female 4:04 PM CDT Gender Identity Female 07/13/2021 9:32 AM CNC LATHE PROGRAMMER Sexual Orientation Straight 07/13/2021 9: 32 AM CNC LATHE PROGRAMMER documented as of this encounter Plan of Treatment Upcoming Encounters Date Type Department Care Team (Late st Contact Info) Description 03/27/2025 2:00 PM CDT Office Visit [facility] Multispecialty Care - [place] [address] [place] [address] Gina Goyal MD [address] [facility] [address] [place] [address] documented as of this encounter Visit Diagnoses Not on filedocumented in this encounter Additional Health Concerns Infection Onset Date Last Indicated Resolved Time COVID-19 Rule Out 03/16/2021 03/16/2021 03/16/2021 2:18 PM CDT COVID-19 Rule Out 03/16/2021 03/16/2021 03/18/2021 10:36 AM CDT COVID-19 Rule Out 04/29/2021 04/29/2021 04/29/2021 12:08 PM CDT COVID-19 Confirmed 04/29/2021 04/29/2021 12:32 AM CNC LATHE PROGRAMMER COVID-19 Rule Out 08/11/2022 08/11/2022 08/11/2022 11:22 AM CNC LATHE PROGRAMMER COVID-19 Rule Out 08/11/2022 08/11/2022 08/12/2022 2:32 PM CNC LATHE PROGRAMMER COVID-19 Rule Out 03/30/2023 03/21/2023 03/30/2023 11:38 AM CDT COVID-19 Rule Out 04/04/2023 03/21/2023 04/11/2023 12:32 AM CDT Assessment Noted Time PHQ-9 Depression Total Score: 8 10/06/19 21 11:04 AM CDT documented as of this encounter Care Teams Hvac Field Service Technician Relationship Specialty Start Date End Date Natalya Huynh APNP Family & Internal Medicine [address] [address] PCP - General ADVANCED PRACTICE OYSTER FLOATER 10/31/1703/16 documented as of this encounter
--- OUTSIDE RECORDS SUMMARY | 2025-03-18 16:39 | XMS_ITS | Clinical Summary ---
Author Organization [facility] Address Count includes the [facility] [place] [address] Care Team Providers Care Reservation Sales Agent Name Role Phone Natalya Huynh Primary Care Provider [phone] Allergies Active Allergy Reactions Criticality Noted Date [...] Sex Assigned at Female 07/13/2021 9:32 AM INSEAM TRIMMING MACHINE OPERATOR Legal Sex Female 4:04 PM CDT Gender Identity Female 07/13/2021 9:32 AM INSEAM TRIMMING MACHINE OPERATOR Sexual Orientation Straight 07/13/2021 9: 32 AM INSEAM TRIMMING MACHINE OPERATOR Last Filed Vital Signs Vital Sign Reading [...] 12/25/2023 11:00 AM CDT Plan of Treatment Upcoming Encounters Date Type Department Care Team (Late st Contact Info) Description 03/27/2025 2:00 PM CDT Office Visit [facility] Multispecialty Care - [place] [address] [address] [place] [address] [place] [address] [place] [address] Health Maintenance Due Date Last Done Comments Hepatitis C 1989 DTaP, Tdap and Td Vaccines (1 - Tdap) 1990 Hepatitis B Vaccines (1 of 3 - 19+ 3-dose series) 1990 Pneumococcal Vaccine: 50+ Years (1 of 1 - PCV) 2021 Zoster Vaccines (1 of 2) 2021 Annual Physical 05/02/2023 05/02/2022 PHQ-2 (Physician [place]) 07/16/2024 12/25/2023 Mammogram Screening 08/11/2024 08/11/2022, 12/17/2020, 10/29/2020, Additional history exists COVID-19 Vaccine ( - 2023- season) 2025 Colorectal Cancer Screening Colonoscopy (10 Years) 11/10/2027 [...] 11/09/2017 us Documents Scanned SCANNING Final Result Performing Organization Address City/State/[facility] Co de Phone Number [facility] from Last 3 Months or Most Recently Relevant to Health Maintenance Insurance Care Teams Reservation Sales Agent Relationship Specialty Start Date End Date Natalya Huynh APNP Family & Internal Medicine [address] [address] PCP - General ADVANCED PRACTICE DOCUMENT CONTROLLER 10/31/1703/16
== END 2025-03-18 15:12 | disposition home or self-care (01) ==
PROVIDERS: PCP Nurse Practitioner Family; Visit Provider Nurse Practitioner Family
DX: M25.561 Pain in right knee (principal); M25.562 Pain in left knee
CPT/HCPCS: 73564

== ENCOUNTER 2025-04-02 15:13 | Outpatient (CLI) | payer OTHER, SELFPAY ==
--- NOTE | ~2025-04-02 | MM_ITS ---
EXAMINATION: MM screening [facility] BI w ajit HISTORY: Screening TECHNIQUE: Craniocaudal and mediolateral oblique 3-D tomosynthesis images were obtained and synthetic 2-D images were generated. CAD analysis was submitted and interpreted. COMPARISON: Comparison to multiple prior studies sequentially, with oldest reviewed study dated 12/31/2009. BREAST PARENCHYMAL COMPOSITION: There are scattered areas of fibroglandular density. FINDINGS: There is no evidence of suspicious mass, calcification, or architectural distortion to suggest malignancy in either breast. Scattered benign-appearing calcifications are present. IMPRESSION: 1. No mammographic evidence of malignancy. 2. Recommend routine screening mammography in one year. BI-RADS Category 2: Benign finding(s). Reviewed, dictated and finalized at location B.
--- OUTSIDE RECORDS SUMMARY | 2025-04-02 15:17 | XMS_ITS | Encounter Summary ---
Author Organization [facility] Address [address] [place] [address] Care Team Providers Care Manager Competitive Intelligence Name Role Phone Natalya Huynh Primary Care Provider [phone] Gina Goyal MD Primary Care Provider [phone] Encounter Details Date Type Department Care Team (Late st Contact Info) Description 03/01/2021 [facility] Physical Therapy [address] [facility] [address] [place] [address] Vinita Causey, PT Social History [...] Sex Assigned at Female 07/13/2021 9:32 AM DIGITAL CARTOGRAPHIC TECHNICIAN Legal Sex Female 4:04 PM CDT Gender Identity Female 07/13/2021 9:32 AM DIGITAL CARTOGRAPHIC TECHNICIAN Sexual Orientation Straight 07/13/2021 9: 32 AM DIGITAL CARTOGRAPHIC TECHNICIAN documented as of this encounter Plan of Treatment Upcoming Encounters Date Type Department Care Team (Late st Contact Info) Description 04/21/2025 9:45 AM CDT Appointment [facility] Open MRI [address] [facility] [place] [address] Josep Esparza MD [address] [facility] [address] [place] [address] documented as of this encounter Visit Diagnoses Not on filedocumented in this encounter Additional Health Concerns Infection Onset Date Last Indicated Resolved Time COVID-19 Rule Out 03/16/2021 03/16/2021 03/16/2021 2:18 PM CDT COVID-19 Rule Out 03/16/2021 03/16/2021 03/18/2021 10:36 AM CDT COVID-19 Rule Out 04/29/2021 04/29/2021 04/29/2021 12:08 PM CDT COVID-19 Confirmed 04/29/2021 04/29/2021 12:32 AM DIGITAL CARTOGRAPHIC TECHNICIAN COVID-19 Rule Out 08/11/2022 08/11/2022 08/11/2022 11:22 AM DIGITAL CARTOGRAPHIC TECHNICIAN COVID-19 Rule Out 08/11/2022 08/11/2022 08/12/2022 2:32 PM DIGITAL CARTOGRAPHIC TECHNICIAN COVID-19 Rule Out 03/30/2023 03/21/2023 03/30/2023 11:38 AM CDT COVID-19 Rule Out 04/04/2023 03/21/2023 04/11/2023 12:32 AM CDT Assessment Noted Time PHQ-9 Depression Total Score: 8 10/06/19 21 11:04 AM CDT documented as of this encounter Care Teams Manager Competitive Intelligence Relationship Specialty Start Date End Date Natalya Huynh APNP Family & Internal Medicine [address] [place] [address] PCP - General ADVANCED PRACTICE RADIO TIME SALESPERSON 10/31/1703/16 Gina Goyal MD [address] [address] PCP - General INTERNAL MEDICINE 03/27/25 documented as of this encounter
--- OUTSIDE RECORDS SUMMARY | 2025-04-02 15:17 | XMS_ITS | Clinical Summary ---
Author Organization [facility] Address [facility] [place] [address] Care Team Providers Care Health Diagnostics Teacher Name Role Phone Gina Goyal MD Primary Care Provider [phone] Allergies Active Allergy Reactions Criticality Noted Date [...] Sex Assigned at Female 07/13/2021 9:32 AM DISPLAY DIRECTOR Legal Sex Female 4:04 PM CDT Gender Identity Female 07/13/2021 9:32 AM DISPLAY DIRECTOR Sexual Orientation Straight 07/13/2021 9: 32 AM DISPLAY DIRECTOR Last Filed Vital Signs Vital Sign Reading [...] Info) Description 04/21/2025 9:45 AM CDT Appointment [facility] [address] [place] [address] Josep Esparza MD [address] [facility] [address] [place] [address] Health Maintenance Due Date Last Done Comments Hepatitis C 1989 DTaP, Tdap and Td Vaccines (1 - Tdap) 1990 Hepatitis B Vaccines (1 of 3 - 19+ 3-dose series) 1990 Pneumococcal Vaccine: 50+ Years (1 of 1 - PCV) 2021 Zoster Vaccines (1 of 2) 2021 Annual Physical 05/02/2023 05/02/2022 PHQ-2 (Physician [place]) 07/16/2024 12/25/2023 Mammogram Screening 08/11/2024 08/11/2022, 12/17/2020, [...] Scanned SCANNING Final Result Performing Organization Address City/State/[facility] Co de Phone Number [facility] from Last 3 Months or Most Recently Relevant to Health Maintenance Insurance [address] [address] Care Teams Health Diagnostics Teacher Relationship Specialty Start Date End Date Gina Goyal MD [address] [address] PCP - General INTERNAL MEDICINE 03/27/25
== END 2025-04-02 15:14 | disposition home or self-care (01) ==
LOC: ANHFOHIMG 15:15
PROVIDERS: PCP Nurse Practitioner Family; Visit Provider Obstetrics & Gynecology
DX: Z12.31 Encounter for screening mammogram for malignant neoplasm of breast (principal)
CPT/HCPCS: 77063; 77067